=== PATIENT | male | born 1955 | race Caucasian/White ===

== ENCOUNTER → 2024-05-27 | Outpatient (BNVA) | payer OTHER, SELFPAY | END | disposition home or self-care (01) | PROVIDERS: PCP Family Medicine; Referring Provider Family Medicine; Visit Provider Urology | DX: C61 Malignant neoplasm of prostate (principal); Z90.79 Acquired absence of other genital organ(s); I10 Essential (primary) hypertension; Z46.6 Encounter for fitting and adjustment of urinary device; E78.00 Pure hypercholesterolemia, unspecified; K21.9 Gastro-esophageal reflux disease without esophagitis | CPT/HCPCS: 99212; G0463 ==

== ENCOUNTER → 2024-05-27 | Outpatient (CLI) | payer OTHER, SELFPAY ==
--- NOTE | 2024-05-27 09:51 | XR_ITS ---
Examination: Cystogram with KUB Fluoroscopy 8 spot fluoroscopic films of the bladder Fluoroscopy AP, MARTINEZ, ALBANIAN, crosstable lateral, post void AP film of the pelvis obtained Exam date and time: May 27, 2024 1019 hours INDICATIONS: Status post prostatectomy for malignant neoplasm prostate one week ago TECHNIQUE AND FINDINGS: Bladder filled with 150 cc Cystografin Bladder trabeculation Bladder is intact No ureteral reflux Fluoroscopy 30 seconds 8 spot fluoroscopic films of the pelvis IMPRESSION: Intact urinary bladder
== END | disposition home or self-care (01) ==
LOC: SDIM 09:47
PROVIDERS: PCP Family Medicine; Referring Provider Urology; Visit Provider Urology
DX: C61 Malignant neoplasm of prostate (principal)
CPT/HCPCS: 51600; 74430; Q9958

== ENCOUNTER 2024-07-01 10:09 | Inpatient (IN) | payer OTHER, MEDICARE, SELFPAY ==
[2024-07-01] VITALS (8 sets, daily range): BP systolic 103–114; BP diastolic 62–68; PULSE 78–98; RESP 16–22; TEMP 36.4–37.1; O2SAT 93–99; BMI 24.3; BMI 24.0
--- NOTE | 2024-07-01 10:51 | XR_ITS ---
Examination: Abdominal series 3 views including AP upright chest Technique one AP portable upright chest AP upright AP supine abdomen total 3 views Exam date and time: July 01, 2024 1102 hours INDICATIONS: Abdominal pain and vomiting beginning 3 days ago. FINDINGS: Normal heart size Lungs are clear. Mild air and stool throughout the colon Tiny central air distended loops of small bowel No free air Moderate osteopenia IMPRESSION: Nonobstructive bowel gas pattern Mild small bowel ileus
[2024-07-01] MEDS: SODIUM CHLORIDE 0.9% 1000 ML 1,000 ML 999 ML IV ×2 (11:01→13:45)
[2024-07-01 11:14] LABS: Lactate (Lactic Acid) 3.2 mMol/L (0.4-2.0)
[2024-07-01 11:16] LABS: Basophils % (Auto) 0 % (0-2.5); Eosinophils % (Auto) 0 % (0-10); Hematocrit 31.9 % (41.0-53.0); Immature Granulocytes % (Auto) 2 % (0-0); Immature Granulocytes Auto 0.21 Thou/mm3 (0.00-0.00); Lymphocytes # (Auto) 0.5 Thou/mm3 (1.0-4.8); Lymphocytes % (Auto) 4 % (10-50); Mean Corpuscular HGB Conc 34.5 g/dl (31.0-37.0); Mean Corpuscular Hemoglobin 30.6 pg (25.0-35.0); Mean Corpuscular Volume 89 fL (80-100); Monocytes # (Auto) 0.7 Thou/mm3 (0.0-0.8); Monocytes % (Auto) 6 % (0-12); Neutrophils # (Auto) 11.5 Thou/mm3 (1.8-7.7); Neutrophils % (Auto) 88 % (37-80); Nucleated Red Blood Cell % 0 /100 WBC (0); Platelet Count 232 Thou/mm3 (140-440); RDW Standard Deviation 42.4 fL (35.1-43.9); Red Blood Count 3.59 Miln/mm3 (4.50-5.90)
[2024-07-01 11:31] LABS: INR 1.1 (0.9-1.3); Partial Thromboplastin Time 36.3 Seconds (22.0-36.0); Prothrombin Time 12.3 Seconds (9.0-12.2)
--- NOTE | 2024-07-01 11:37 | EDNOTE_ITS ---
ED General RME/HPI General Chief complaint: Flu Like Symptoms Stated complaint: DIARRHEA, BODYACHES, BACK PAIN Time Seen by Provider: 07/01/24 10:20 Arrival date/time: 07/01/24 10:09 RME / HPI RME / HPI narrative: 68 year old male with history of prostate CA, s/p robotic-assisted radical prostatectomy at [facility] on 05/20/2024, hypertension, presents to the ED for evaluation of generalized weakness beginning 3 days ago. Accompanied by nausea, vomiting, difficulty sleeping, back and right flank pain. Unable to tolerate anything by mouth. Reportedly consulted with PCP yesterday who prescribed medications to help him sleep. States he took a pill last night without any improvement. This morning noted to feel significantly weaker, prompting ED visit. Daughter additionally reports while in the ED the patient had a blank stare and body was stiff. States he has had history of similar blank stare and body stiffness in the past during his 's . No known history of seizures. Denies fevers, chills, chest pain, cough, shortness of breath, or urinary symptoms. Related Data Home Medications ?Medication ?Instructions ?Recorded ?Confirmed omeprazole 40 mg capsule,delayed 40 mg PO QDAY 10/07/17 05/27/24 release simvastatin 20 mg tablet 20 mg PO QAM 10/07/17 05/27/24 losartan 25 mg tablet 25 mg PO QDAY 11/15/23 05/27/24 tamsulosin 0.4 mg capsule 0.4 mg PO QHS 12/04/23 05/27/24 Allergies Allergy/AdvReac Type Severity Reaction Status Date / Time No Known Allergies Allergy Verified 07/01/24 10:11 Review of Systems Review of Systems Narrative Review of Systems: GEN: No fever, no chills, no weight loss EYES: No discharge, no visual changes, no pain HEENT: No ear pain, no congestion, no sore throat PULM: No shortness of breath, no cough, no congestion CV: No chest pain, no palpitations GI: +nausea, +vomiting, +diarrhea, no pain, no constipation : No frequency, no urgency, no dysuria MUSC/SKEL: No joint pain, no back pain SKIN: No rash NEURO: No weakness, no headache Past Medical History Past Medical History CARDIAC: Positive Cardiac Disorders, Hypercholesterolemia and Hypertension GASTROINTESTINAL: Positive Gastrointestinal Disorders (occational heart burn) and Gastroesophageal Reflux Disease GENITOURINARY: Positive Genitourinary Disorders, Prostate Cancer and Benign Prostatic Hyperplasia MUSCULOSKELETAL: Positive Musculoskeletal Disorders OTHER HISTORY: Positive Falls (this admission), Cancer and Prostate Cancer Social History SMOKING STATUS: Never smoker SECOND HAND EXPOSURE: No ED Exam Narrative Physical exam: GENERAL APPEARANCE: alert and oriented x 4, well-developed, well-nourished, mild pallor, mild diaphoresis HEENT: Normocephalic, atraumatic; pupils equal, round, reactive to light; EOMI; mucous membranes pink, moist; oropharynx clear NECK: Supple LUNGS: CTABL; no wheezes, no rales, no rhonchi HEART: Regular rate, regular rhythm; normal S1, S2; no murmurs ABDOMEN: well healing surgical scars noted; mildly distended; normal BS; soft, no tenderness, no guarding, no rebound; no masses, no organomegaly, no hernia BACK: no CVA tenderness EXTREMITIES: atraumatic; no edema NEUROLOGIC: awake; alert and oriented x4; cranial nerves II-XII grossly intact; no focal sensory or motor deficits PSYCHIATRIC: appropriate mood and affect SKIN: warm, mild diaphoresis; pallor; no rashes Course Quality Measures Current suspected stage: sepsis Possible source: GI tract/intra-abdominal Blood cultures ordered: completed in ED Antibiotic ordered: Yes Pertinent labs: 07/01/24 07/01/24 10:50 14:26 Lactic Acid 3.2 H mMol/L 0.8 mMol/L (0.4-2.0) (0.4-2.0) Procalcitonin > 50.00 H ng/ml (0.0-0.49) sepsis Orders Category Date Time Status Admit to Inpatient Status Routine Admission 07/01/24 14:55 Active Patient Condition Routine Admission 07/01/24 14:56 Ordered Bee Farmer NOW Care 07/01/24 10:52 Active EKG (ED ONLY) *Do not use* NOW Care 07/01/24 10:52 Completed Flu & Pneumonia Vaccine Screen ONCE Care 07/01/24 14:56 Active Notify provider NEEDED Care 07/01/24 14:[address] abdomen pelvis wo con Stat Exams 07/01/24 12:39 Completed EKG (ED Only) Stat Exams 07/01/24 10:52 Ordered XR abdomen series w chest 1V Stat Exams 07/01/24 10:51 Completed B-Type Natriuretic Peptide Stat Lab 07/01/24 10:50 Completed Blood Culture (Lab) Stat Lab 07/01/24 11:18 Received CBC AM DRAW Lab 07/02/24 05:00 Ordered CBC AM DRAW Lab 07/03/24 05:00 Ordered CBC AM DRAW Lab 07/04/24 05:00 Ordered CBC AM DRAW Lab 07/05/24 05:00 Ordered CBC AM DRAW Lab 07/06/24 05:00 Ordered CBC Stat Lab 07/01/24 10:50 Completed Comprehensive Metabolic Panel AM DRAW Lab 07/02/24 05:00 Ordered Comprehensive Metabolic Panel AM DRAW Lab 07/03/24 05:00 Ordered Comprehensive Metabolic Panel AM DRAW Lab 07/04/24 05:00 Ordered Comprehensive Metabolic Panel AM DRAW Lab 07/05/24 05:00 Ordered Comprehensive Metabolic Panel AM DRAW Lab 07/06/24 05:00 Ordered Comprehensive Metabolic Panel Stat Lab 07/01/24 10:50 Completed Lactate (Lactic Acid) Stat Lab 07/01/24 10:50 Completed Lactic Acid, 3 HR Stat Lab 07/01/24 14:26 Completed Lipase Stat Lab 07/01/24 10:50 Completed Lipid Panel AM DRAW Lab 07/02/24 05:00 Ordered Magnesium AM DRAW Lab 07/02/24 05:00 Ordered Magnesium AM DRAW Lab 07/03/24 05:00 Ordered Magnesium AM DRAW Lab 07/04/24 05:00 Ordered Magnesium AM DRAW Lab 07/05/24 05:00 Ordered Magnesium AM DRAW Lab 07/06/24 05:00 Ordered Magnesium Stat Lab 07/01/24 10:50 Completed Partial Thromboplastin Time Stat Lab 07/01/24 10:50 Completed Phosphorous AM DRAW Lab 07/02/24 05:00 Ordered Phosphorous AM DRAW Lab 07/03/24 05:00 Ordered Phosphorous AM DRAW Lab 07/04/24 05:00 Ordered Phosphorous AM DRAW Lab 07/05/24 05:00 Ordered Phosphorous AM DRAW Lab 07/06/24 05:00 Ordered Procalcitonin Stat Lab 07/01/24 10:50 Completed Prothrombin Time with INR Stat Lab 07/01/24 10:50 Completed Thyroid Stimulating Hormone AM DRAW Lab 07/02/24 05:00 Ordered Troponin I Stat Lab 07/01/24 10:50 Completed Urinalysis Stat Lab 07/01/24 13:20 Completed Urine Culture Stat Lab 07/01/24 13:20 Received Acetaminophen Tab [Tylenol Tab] Med 07/01/24 14:55 Active 650 mg PO Q6H PRN Acetaminophen Tab [Tylenol Tab] Med 07/01/24 14:55 Active 650 mg PO Q6H PRN Docusate Sod [Colace] Med 07/02/24 09:00 Ordered 100 mg PO QDAY Heparin Inj Med 07/01/24 22:00 Active 5,000 unit SC Q8HR Ondansetron Inj [Zofran Inj] Med 07/01/24 14:55 Active 4 mg IV Q6H PRN POTASSIUM CHL 10 mEq IVPB [Kcl Ivpb] Med 07/01/24 12:07 Active 10 meq in 100 ml IV Q1H Piper/Tazo 2.25 gm [Zosyn] Med 07/01/24 12:32 Discontinued 2.25 gm in 50 ml IV X1 Sodium Chloride 0.9% 1000 ml [Ns] 1,000 ml Med 07/01/24 10:51 Discontinued IV 999 mls/hr Sodium Chloride 0.9% 1000 ml [Ns] 1,000 ml Med 07/01/24 12:31 Discontinued IV 999 mls/hr Code Status Routine Oth 07/01/24 14:55 Ordered Vital Signs Vital signs: Vital Signs Temperature 98.3 F 07/01/24 10:50 Pulse Rate 92 07/01/24 10:50 Respiratory Rate 19 07/01/24 10:50 Blood Pressure 108/67 07/01/24 10:50 Pulse Oximetry (%) 97 07/01/24 10:50 Oxygen Delivery Method Room Air 07/01/24 10:50 Pulse ox is 97% on room air which is adequate. [facility] Patient data External records reviewed:: [facility] previous records (I reviewed outpatient urology note on 05/30/2024 ) Clinical information provided by:: patient and family (Daughter- adds to hpi) Social determinants that could affect healthcare access:: none Patient has the following chronic illnesses:: prostate CA, s/p robotic-assisted radical prostatectomy at [facility] on 05/20/2024, hypertension, How is presenting disease/condition affected by chronic disease/condition?: e xacerbated by Evaluation data The following diagnostics were reviewed and interpreted by me:: lab results, radiology exam(s) and EKG tracing(s) (Sinus rhythm, rate 91, mild IVCD, no acute ischemic changes. ) Lab and/or radiology exams considered but not ordered:: None Interpretation Summary: Ordering Physician: Isha Pratt MD Date of Service: 07/01/24 Procedure(s): XR abdomen series w chest 1V Accession Number(s): [id number] cc: Abram Tyson MD; Bernadette Montgomery MD; Isha Pratt MD~ Examination: Abdominal series 3 views including AP upright chest Technique one AP portable upright chest AP upright AP supine abdomen total 3 views Exam date and time: July 01, 2024 1102 hours INDICATIONS: Abdominal pain and vomiting beginning 3 days ago. FINDINGS: Normal heart size Lungs are clear. Mild air and stool throughout the colon Tiny central air distended loops of small bowel No free air Moderate osteopenia IMPRESSION: Nonobstructive bowel gas pattern Mild small bowel ileus Dictated By: Abram Tyson MD Signed By: <Electronically signed by Abram Tyson MD in OV> 07/01/24 1128 Ordering Physician: Isha Pratt MD Date of Service: 07/01/24 Procedure(s): CT abdomen pelvis wo con Accession Number(s): [id number] cc: Abram Tyson MD; Bernadette Montgomery MD; Isha Pratt MD~ Examination: CT abdomen and pelvis without contrast. Coronal 3-D reconstructions. Sagittal 2-D reconstructions. Date and time of exam:July 01, 2024 1250 hours Comparison September 06, 2023 INDICATIONS: Onset generalized abdominal pain nausea vomiting today CTDI: vol (mGy): 7.63 DLP: (mGycm): 501 Technique: Axial images of the abdomen have been obtained, 3 mm slice thickness Intravenous contrast material has not been administered. Low dose protocols were performed. One or more of the following dose reduction techniques were used; automated exposure control, adjustment of the mA and/or KV according to patient size, use of iterative reconstruction technique. Findings: Mild enlargement cardiac contour 2 mm pulmonary nodule right middle lobe No visualized liver or splenic lesion Contracted gallbladder no gallstones No pancreatic mass Stable large right parapelvic renal cyst, 13 cm versus congenital ureteropelvic junction obstruction No ureteral calculi Right perinephric stranding Normal appendix No bowel obstruction Left pelvic 7 cm cystic mass No diverticulitis No significant prostate tissue Contracted urinary bladder Grade 1 spondylolisthesis L5 on S1 with advanced degenerative disc disease this level IMPRESSION: Large right parapelvic cyst, 13 cm versus congenital ureteropelvic junction obstruction Follow-up nuclear medicine renogram with Lasix would confirm congenital ureteropelvic junction obstruction, clinical correlation advised Dictated By: Abram Tyson MD Signed By: <Electronically signed by Abram Tyson MD in OV> 07/01/24 1328 Medications Medications considered but not ordered:: None Medication administrations:: Medication Administration History Acetaminophen (Acetaminophen 325 Mg Tablet) 650 mg PO Q6H PRN PRN Reason: Fever >100.5 Stop: 07/31/24 14:54 Acetaminophen (Acetaminophen 325 Mg Tablet) 650 mg PO Q6H PRN PRN Reason: PAIN SCALE 1-3 (mild Stop: 07/31/24 14:54 Docusate Sodium (Docusate Sod 100 Mg Capsule) 100 mg PO QDAY [facility]; Protocol Stop: 08/01/24 08:59 Heparin Sodium (Porcine) (Heparin Sod Inj 5000 Unit/Ml Vial) 5,000 unit SC Q8HR [facility] Stop: 07/15/24 21:59 Potassium Chloride (Kcl Ivpb) 10 meq in 100 mls @ 100 mls/hr IV Q1H [facility] Stop: 07/01/24 16:06 Last Admin: 07/01/24 13:41 Dose: 100 mls/hr Documented By: Infusion: 07/01/24 13:41 Dose: Infused Documented By: Admin: 07/01/24 12:24 Dose: 100 mls/hr Documented By: MARYAN Ondansetron HCl (Ondansetron Inj 2 Mg/Ml Inj 2 Ml) 4 mg IV Q6H PRN; Protocol PRN Reason: NAUSEA OR VOMITING Stop: 07/31/24 14:54 Discontinued Medications Sodium Chloride (Ns) 1,000 mls @ 999 mls/hr IV .Q1H1M ONE Stop: 07/01/24 11:51 Last Infusion: 07/01/24 12:27 Dose: Infused Documented By: Admin: 07/01/24 11:01 Dose: 999 mls/hr Documented By: MOLINA Sodium Chloride (Ns) 1,000 mls @ 999 mls/hr IV .Q1H1M ONE Stop: 07/01/24 13:31 Last Infusion: 07/01/24 14:37 Dose: Infused Documented By: Admin: 07/01/24 13:45 Dose: 999 mls/hr Documented By: DB Piperacillin/Tazobactam/Dextrose (Zosyn) 2.25 gm in 50 mls @ 100 mls/hr IV X1 ONE Stop: 07/01/24 13:01 Last Infusion: 07/01/24 14:37 Dose: Infused Documented By: Admin: 07/01/24 13:46 Dose: 100 mls/hr Documented By: MARYAN See above Consultations Consultation(s) initiated? (list below): Yes Consultation #1 (Physician, Specialty, Details): I spoke with resident Dr. Bahena working with Dr. Weiner. Discussed patients PMHx, HPI, ED course, exam findings, labs, and radiology results. The hospitalist agree to accept the patient for admission. Diagnosis Differential Diagnosis ED Complaint MDM: Gastroenteritis, viral illness, sepsis, UTI, pneumonia Most likely diagnosis given after review of the tests above:: Dehydration KEELEY Hypokalemia Admission Indicated Admission indicated?: indicated Explain why admission is indicated or not indicated:: Further evaluation and treatment of right flank pain Admission Request Was there a request for admission?: Yes Admission Attestation Admission request attestation: Discussed case with [] from Hospitalist service regarding admission. Discussed patients ED course, exam findings, labs, and radiology results. The Hospitalist [agrees,declines] to accept the patient for admission. Disposition Plan Disposition Plan: Admit Medical Decision Making Differential Diagnosis Differential Diagnosis: Gastroenteritis, viral illness, sepsis, UTI, pneumonia Lab Data 07/01/24 10:50 07/01/24 10:50 Labs: Lab Results 07/01/24 07/01/24 07/01/24 Range/Units 10:50 13:20 14:26 WBC 13.0 H (3.8-10.6) Thou/mm3 RBC 3.59 L (4.50-5.90) Miln/mm3 Hgb 11.0 L (13.5-16.0) g/dL Hct 31.9 L (41.0-53.0) % MCV 89 (80-100) fL MCH 30.6 (25.0-35.0) pg MCHC 34.5 (31.0-37.0) g/dl RDW Std Deviation 42.4 (35.1-43.9) fL Plt Count 232 (140-440) Thou/mm3 Neut % (Auto) 88 H (37-80) % Lymph % (Auto) 4 L (10-50) % Crockett % (Auto) 6 (0-12) % Eos % (Auto) 0 (0-10) % Baso % (Auto) 0 (0-2.5) % Neut # (Auto) 11.5 H (1.8-7.7) Thou/mm3 Lymph # (Auto) 0.5 L (1.0-4.8) Thou/mm3 Crockett # (Auto) 0.7 (0.0-0.8) Thou/mm3 Eos # (Auto) 0.0 (0.0-0.5) Thou/mm3 Baso # (Auto) 0.0 (0.0-0.2) Thou/mm3 Immature Gran # (Auto) 0.21 H (0.00-0.00) Thou/mm3 Absolute Nucleated RBC 0.00 (0.00-0.00) Thou/mm3 Immature Gran % 2 H (0-0) % Nucleated RBC % 0 (0) /100 WBC PT 12.3 H (9.0-12.2) Seconds INR 1.1 (0.9-1.3) APTT 36.3 H (22.0-36.0) Seconds Sodium 134 L (136-145) mMol/L Potassium 2.9 L (3.4-5.1) mMol/L Chloride 98 (98-107) mMol/L Carbon Dioxide 20.0 (20.0-31.0) mMol/L Anion Gap 16 (7-16) BUN 57 H (9-23) mg/dL Creatinine 4.5 H* (0.6-1.3) mg/dL Estim Creat Clear Calc 16.7 L (>60) mL/min eGFR 14 L* (60 - ) See Note BUN/Creatinine Ratio 13 (12-20) Ratio Glucose 150 H (74-106) mg/dL Calculated Osmolality 287 (275-295) Lactic Acid 3.2 H 0.8 (0.4-2.0) mMol/L Calcium 9.0 (8.3-10.6) mg/dL Corrected Calcium 9.0 (8.5-10.1) mg/dL Magnesium 1.8 (1.6-2.6) mg/dL Total Bilirubin 0.5 (0.3-1.2) mg/dL AST 20 (0-34) U/L ALT 21 (10-49) U/L Alkaline Phosphatase 99 (46-116) U/L Troponin I 0.058 H* (0.0-0.045) ng/mL B-Natriuretic Peptide 26 (0-100) pg/mL Total Protein 7.1 (5.7-8.2) gm/dL Albumin 4.2 (3.4-4.8) gm/dL Globulin 2.9 (2.3-3.5) gm/dL Albumin/Globulin Ratio 1.4 (1.2-2.2) Lipase 40 (12-53) U/L Procalcitonin > 50.00 H (0.0-0.49) ng/ml Ur Collection Type Clean Catch Urine Color Yellow (Lt Yel-Yel) Urine Clarity Cloudy A (Clear/Hazy) Urine pH 6.0 (5.0-7.0) Ur Specific Calhoun 1.021 (1.001-1.035) Urine Protein 3+ A (Neg - Trace) Urine Glucose (UA) Trace (Negative) Urine Ketones Negative (Negative) Urine Blood 2+ A (Negative) Urine Nitrite Negative (Negative) Urine Bilirubin Negative (Negative) Urine Urobilinogen (Auto) Negative (0.0-1.0) mg/dL Ur Leukocyte Esterase Positive (Negative) Urine RBC 47 H (0-3) /hpf Urine WBC 1346 H (0-5) /hpf Ur Squamous Epith Cells 2 (0-5) /hpf Amorphous Crystals Present A (Absent) Urine Bacteria 1+ A (None) Critical Care Time Critical Care Time Critical Care Time: Yes Total Critical Care Time (min.): 30 Attestation: The high probability of sudden, clinically significant deterioration in the patient's condition required the highest level of my preparedness to intervene urgently. The services I provided to this patient were to treat and/or prevent clinically significant deterioration. Services included the following: chart data review, reviewing nursing notes and/or old charts, documentation time, architecture consultant collaboration regarding findings and treatment options, medication orders and management, direct patient care, vital sign assessments and ordering, interpreting and reviewing diagnostic studies and lab tests. Aggregate critical care time includes only time during which I was engaged in work directly related to the patient's care, as described above, whether at bedside or elsewhere in the Emergency Department. It did not include time spent performing other reported procedures or the services of residents, students, nurses or physician assistants. Discharge Plan Plan Patient Disposition: Admit Acute Care w/in Hospital Disposition Comment: Dr. Weiner Prescriptions/Referrals Prescriptions/Med Rec: No Action losartan 25 mg tablet 25 mg PO QDAY tamsulosin 0.4 mg capsule 0.4 mg PO QHS omeprazole 40 mg Capsule,Delayed Release(Dr/Ec) 40 mg PO QDAY simvastatin 20 mg Tablet 20 mg PO QAM Referrals: Bernadette Sierra MD [Primary Care Provider] - In 1 week Problem List Clinical Impression: Dehydration, KEELEY (acute kidney injury), Hypokalemia Patient/Caregiver Discharge Instructions Print Language: Cuban Stand Alone Forms: Tarah Award Info., Patient Portal Info Letter
[2024-07-01 11:50] LABS: Alanine Aminotransferase 21 U/L (10-49); Albumin, Serum 4.2 gm/dL (3.4-4.8); Albumin/Globulin Ratio 1.4 (1.2-2.2); Alkaline Phosphatase 99 U/L (46-116); Anion Gap 16 (7-16); Aspartate Amino Transferase 20 U/L (0-34); BUN/Creatinine Ratio 13 Ratio (12-20); Bilirubin,Total 0.5 mg/dL (0.3-1.2); Blood Urea Nitrogen 57 mg/dL (9-23); Chloride 98 mMol/L (98-107); Creatinine (Component) 4.5 mg/dL (0.6-1.3); Estimated Creatinine Clearance 16.7 mL/min (>60); Globulin 2.9 gm/dL (2.3-3.5); Glucose 150 mg/dL (74-106); Lipase 40 U/L (12-53); Magnesium 1.8 mg/dL (1.6-2.6); Osmolality,Calculated 287 (275-295); Potassium 2.9 mMol/L (3.4-5.1); Procalcitonin > 50.00 ng/ml (0.0-0.49); Sodium 134 mMol/L (136-145); Total Protein 7.1 gm/dL (5.7-8.2); eGFR 14 See Note
[2024-07-01 11:57] LABS: Troponin I 0.058 ng/mL (0.0-0.045)
[2024-07-01 12:07] LABS: B-Type Natriuretic Peptide 26 pg/mL (0-100)
[2024-07-01] MEDS: POTASSIUM CHL 10 mEq IVPB 10 MEQ/100 ML BAG 100 MEQ IV ×4 (12:24→16:27)
--- NOTE | 2024-07-01 12:39 | XR_ITS ---
Examination: CT abdomen and pelvis without contrast. Coronal 3-D reconstructions. Sagittal 2-D reconstructions. Date and time of exam:July 01, 2024 1250 hours Comparison September 06, 2023 INDICATIONS: Onset generalized abdominal pain nausea vomiting today CTDI: vol (mGy): 7.63 DLP: (mGycm): 501 Technique: Axial images of the abdomen have been obtained, 3 mm slice thickness Intravenous contrast material has not been administered. Low dose protocols were performed. One or more of the following dose reduction techniques were used; automated exposure control, adjustment of the mA and/or KV according to patient size, use of iterative reconstruction technique. Findings: Mild enlargement cardiac contour 2 mm pulmonary nodule right middle lobe No visualized liver or splenic lesion Contracted gallbladder no gallstones No pancreatic mass Stable large right parapelvic renal cyst, 13 cm versus congenital ureteropelvic junction obstruction No ureteral calculi Right perinephric stranding Normal appendix No bowel obstruction Left pelvic 7 cm cystic mass No diverticulitis No significant prostate tissue Contracted urinary bladder Grade 1 spondylolisthesis L5 on S1 with advanced degenerative disc disease this level IMPRESSION: Large right parapelvic cyst, 13 cm versus congenital ureteropelvic junction obstruction Follow-up nuclear medicine renogram with Lasix would confirm congenital ureteropelvic junction obstruction, clinical correlation advised
[2024-07-01 13:29] LABS: Collection Type, Urine Clean Catch
[2024-07-01] MEDS: PIPER/TAZO 2.25 GM 2.25 GM/50 ML BAG IV (13:46)
[2024-07-01 13:50] LABS: Amorphous Crystals,Urine Present (Absent); Bacteria,Urine 1+; Bilirubin,Urine Negative (Negative); Blood,Urine 2+ (Negative); Color,Urine Yellow (Lt Yel-Yel); Glucose, Urine Trace (Negative); Ketones,Urine Negative (Negative); Leukocyte Esterase,Urine Positive (Negative); Nitrite,Urine Negative (Negative); Protein,Urine 3+ (Neg - Trace); RBC,Urine 47 /hpf (0-3); Specific Gravity,Urine 1.021 (1.001-1.035); Squamous Epithelial Cell,Urine 2 /hpf (0-5); Urobilinogen,Urine Negative mg/dL (0.0-1.0); WBC,Urine 1346 /hpf (0-5)
[2024-07-01 13:53] LABS: Clarity,Urine Cloudy (Clear/Hazy)
[2024-07-01 14:12] LABS: Reflex Lactate? Y
[2024-07-01 14:31] LABS: Lactic Acid, 3 HR 0.8 mMol/L (0.4-2.0)
--- NOTE | 2024-07-01 15:18 | PD.RESHP ---
Documentation for date of: 07/01/24 Senior resident attestation: Patient evaluated and examined at the bedside, plan of care discussed with rest of the team including my attending physician, except as noted. 68-year-old male with past medical history of prostate CA, s/p robotic-assisted radical prostatectomy at [facility] on 05/20/2024, hypertension, presents to the ED for evaluation of generalized weakness beginning 3 days ago. Patient states having nonbloody watery diarrhea for the past few days. Patient also states having nausea and vomiting as well as right flank pain and decreased p.o. intake. Patient denies any sick contacts at this time. Denies fever, chills, chest pain, shortness of breath, abdominal pain. Patient will be admitted for acute gastroenteritis and KEELEY. #Acute pyelonephritis Right perinephric stranding on the CT as well as positive urinalysis, we will continue IV antibiotics, also has history of recent prostate surgery. ? IV Zosyn renally dosed 2.25 every 12 hours ? Follow urine and blood cultures #KEELEY? prerenal versus postrenal In the setting of dehydration and acute gastroenteritis, as well as patient has a large renal pelvic cyst, which has been there for quite some time, per patient he is aware of the cyst/mass and has seen urology in the past, less likely cause of post renal KEELEY, also patient has history of prostate carcinoma and got recent prostate surgery with robotic prostatectomy, CT shows nondistended urinary bladder. Less impressed with postrenal obstructive uropathy, more likely prerenal versus intrinsic renal given acute pyonephritis. ? Will continue with IV fluids and antibiotics for infection. ? Nephrology consult will be placed, appreciate recommendations Quresh PGY2 HPI History of Present Illness Chief complaint: Diarrhea History of present illness: 68-year-old male with past medical history of prostate CA, s/p robotic-assisted radical prostatectomy at [facility] on 05/20/2024, hypertension, presents to the ED for evaluation of generalized weakness beginning 3 days ago. Patient states having nonbloody watery diarrhea for the past few days. Patient also states having nausea and vomiting as well as right flank pain and decreased p.o. intake. Patient denies any sick contacts at this time. Denies fever, chills, chest pain, shortness of breath, abdominal pain. Patient will be admitted for acute gastroenteritis and KEELEY. ED course: Vitals on admission unremarkable, labs significant for leukocytosis, hemoglobin 11, CHEM panel significant for potassium 2.9, BUN 57, creatinine 4.5, glucose 150. CT abdomen pelvis was done showed Large right parapelvic cyst, 13 cm versus congenital ureteropelvic junction obstruction. Follow-up nuclear medicine renogram with Lasix would confirm congenital. ureteropelvic junction obstruction, clinical correlation advised in the ED patient received 2.5 L of NS, potassium chloride, Zosyn PMHx: Prostate cancer, hypertension SxHx: Prostatectomy Social Hx: Denies alcohol, denies tobacco, denies illicit substances including THC FHx: Unknown Review of Systems Review of Systems Narrative Review of Systems: Narrative ROS GENERAL: Denies fevers/chills or diaphoresis. HEENT: Denies headache or visual/hearing changes. Denies nasal discharge. NEURO: Denies unusual weakness or difficulty speaking. CARDIO: Denies chest pain or palpitations. PULM: Denies SOB, coughing, or wheezing. GI: Positive diarrhea vomiting, denies bright red blood per rectum or melena. Reports having BMs. URO: Denies burning/itching/pain/urinary changes. MSK/EXT/SKIN: Denies joint/skeletal/muscle pain, issues/changes in upper or lower extremities, itchiness, or superficial pain. PSYCH: Cooperative, pleasant mood & affect. The rest of the review of systems is otherwise negative. Exam Vital Signs Temp Pulse Resp BP Pulse Ox O2 Del Method 97.7 F 81 16 114/62 96 Room Air 07/01/24 14:30 07/01/24 14:29 07/01/24 14:29 07/01/24 14:29 07/01/24 14:29 07/01/24 14:29 Narrative Exam Physical Exam GENERAL: NAD, AAOx3 HEENT: Moist mucosa. Eyes open, symmetrical, & clear CARDIO: Heart RRR, no obvious murmurs PULM: No noted coughing/dyspnea CTA B/L, no R/W/R GI: Abdomen soft, nondistended, no pain on palpation. BSx4 SKIN/MSK/EXT: No wounds/rashes/edema/amputations, no pain on palpation. Right flank pain pedal pulses present B/L NEURO: AAOx3, no focal neuro deficits, able to move all 4 extremities Results: Labs 07/02/24 05:53 07/02/24 05:53 Labs: Short CBC 07/01/24 Range/Units 10:50 WBC 13.0 H (3.8-10.6) Thou/mm3 Hgb 11.0 L (13.5-16.0) g/dL Hct 31.9 L (41.0-53.0) % Plt Count 232 (140-440) Thou/mm3 BMP 07/01/24 10:50 Sodium 134 L Potassium 2.9 L Chloride 98 Carbon Dioxide 20.0 BUN 57 H Creatinine 4.5 H* Glucose 150 H Calcium 9.0 Cardiac Enzymes 07/01/24 Range/Units 10:50 Troponin I 0.058 H* (0.0-0.045) ng/mL Liver Function 07/01/24 Range/Units 10:50 Total Bilirubin 0.5 (0.3-1.2) mg/dL AST 20 (0-34) U/L ALT 21 (10-49) U/L Alkaline Phosphatase 99 (46-116) U/L Albumin 4.2 (3.4-4.8) gm/dL Urine 07/01/24 Range/Units 13:20 Urine Color Yellow (Lt Yel-Yel) Urine Clarity Cloudy A (Clear/Hazy) Urine pH 6.0 (5.0-7.0) Ur Specific [place] 1.021 (1.001-1.035) Urine Protein 3+ A (Neg - Trace) Urine Glucose (UA) Trace (Negative) Quality Measures Quality Measures sepsis Current suspected stage: sepsis Possible source: GI tract/intra-abdominal Blood cultures ordered: completed in ED Antibiotic ordered: Yes Advance care planning discussed with:: patient Medications Home Medications and Allergies Home Medications ?Medication ?Instructions ?Recorded ?Confirmed ?Type omeprazole 40 mg capsule,delayed 40 mg PO QPM 10/07/17 07/01/24 History release simvastatin 20 mg tablet 20 mg PO QPM 10/07/17 07/01/24 History losartan 25 mg tablet 25 mg PO QPM 11/15/23 07/01/24 History hydroxyzine HCl 25 mg tablet 25 mg PO HS 07/01/24 07/01/24 History Allergies Allergy/AdvReac Type Severity Reaction Status Date / Time No Known Allergies Allergy Verified 07/01/24 10:11 Visit Medications Acetaminophen (Acetaminophen 325 Mg Tablet) 650 mg PO Q6H PRN PRN Reason: Fever >100.5 Stop: 07/31/24 14:54 Acetaminophen (Acetaminophen 325 Mg Tablet) 650 mg PO Q6H PRN PRN Reason: PAIN SCALE 1-3 (mild Stop: 07/31/24 14:54 Docusate Sodium (Docusate Sod 100 Mg Capsule) 100 mg PO QDAY SASHA; Protocol Stop: 08/01/24 08:59 Heparin Sodium (Porcine) (Heparin Sod Inj 5000 Unit/Ml Vial) 5,000 unit SC Q8HR SASHA Stop: 07/15/24 21:59 Potassium Chloride (Kcl Ivpb) 10 meq in 100 mls @ 100 mls/hr IV Q1H SASHA Stop: 07/01/24 16:06 Last Admin: 07/01/24 15:09 Dose: 100 mls/hr Ceftriaxone Sodium/Dextrose (Rocephin/D5w 1gm Iv Premix) 50 mls @ 100 mls/hr IV QDAY SASHA Stop: 07/08/24 15:15 Ondansetron HCl (Ondansetron Inj 2 Mg/Ml Inj 2 Ml) 4 mg IV Q6H PRN; Protocol PRN Reason: NAUSEA OR VOMITING Stop: 07/31/24 14:54 Discontinued Medications Sodium Chloride (Ns) 1,000 mls @ 999 mls/hr IV .Q1H1M ONE Stop: 07/01/24 11:51 Last Infusion: 07/01/24 12:27 Dose: Infused Sodium Chloride (Ns) 1,000 mls @ 999 mls/hr IV .Q1H1M ONE Stop: 07/01/24 13:31 Last Infusion: 07/01/24 14:37 Dose: Infused Piperacillin/Tazobactam/Dextrose (Zosyn) 2.25 gm in 50 mls @ 100 mls/hr IV X1 ONE Stop: 07/01/24 13:01 Last Infusion: 07/01/24 14:37 Dose: Infused Assessment & Plan Plan 68-year-old male with past medical history of prostate CA, s/p robotic-assisted radical prostatectomy at [facility] on 05/20/2024, hypertension, presents to the ED for evaluation of generalized weakness beginning 3 days ago. Patient states having nonbloody watery diarrhea for the past few days. Patient also states having nausea and vomiting as well as right flank pain. Admitted for acute gastroenteritis and KEELEY. #Acute gastroenteritis #Pyelonephritis #Sepsis-aborted Patient states having diarrhea for the past 2 days after consuming some suspicious food Patient states having right flank tenderness On med rec patient takes omeprazole On Labs patient has SIRS 2/4 WBCs 13, no fever, no tachycardia, no tachypnea, Lactic acid 3.2, organ dysfunction kidney with KEELEY however repeat lactic acid normalized, procalcitonin >50 currently qSOFA:0, SIRS 1/4, not sepsis UA shows no signs of UTI many WBCs, bacteria CT abdomen pelvis also shows Right perinephric stranding In the ED patient received 2L NS boluses -On IV fluids -on Zosyn -C. difficile ordered -Follow urine culture -follow blood cultures #Acute Kidney Injury likely pre-renal in the setting of decreased po intake and dehydration Creatinine on admission 4.5 Baseline Cr 0.9 -On IV fluids -Renally dose medications -Avoid nephrotoxins -Monitor CMP #Troponinemia Likely in the setting of demand ischemia due to underlying infection EKG ordered however not on file, cannot find Troponins 0.058 -Consider uploading -Follow-up troponins q6 hours #Hypokalemia On admission potassium 2.9 -Replete as necessary -Monitor BMP #Hypertension Patient is normotensive at this time -Consider resuming antihypertensives #Renal cyst, right 13 cm #History of prostate cancer CT abdomen pelvis shows: Large right parapelvic cyst, 13 cm versus congenital ureteropelvic junction obstruction -Outpatient follow-up with Dr. Dexter -Resume Flomax as taken at home Case discussed with my senior Dr. Bahena PGY-[address] Regine Duarte MD PGY-1 Disposition: Medtele Fluids: NS Feeding: Regular Thrombo prophylaxis: Heparin Gastric Ulcer prophylaxis: None CODE STATUS: Full code Attending Provider Attestation/Addendum I reviewed labs, imaging, EKG, home medications and prior available records. Face to face evaluation was performed by me. I have personally examined the patient and discussed assessment and plan with the IM team. I reviewed the resident note and agree with the plan with exceptions as below. See my addendum on 07/01
--- NOTE | 2024-07-01 15:19 | PD.ADDHP ---
Addendum History & Physical Addendum Date of report being addended: 07/01/24 Narrative: Attending's attestation: I reviewed labs, imaging, EKG, home medications and prior available records. Face to face evaluation was performed by me. I have personally examined the patient and discussed assessment and plan with the IM team. I reviewed the resident note and agree with the plan with exceptions as below. KEELEY Acute gastroenteritis Acute UTI Elevated troponin Hypokalemia Renal cyst, right 13 cm History of prostate cancer Plan: IV fluids IV ceftriaxone Send urine culture Monitor kidney function. Avoid nephrotoxins. Renally dose medications Trend troponin Replete potassium and monitor BMP Renal cyst appears to be chronic and patient is aware of that finding. Outpatient follow-up with Dr. Dexter
[2024-07-01] MEDS: cefTRIAXone/D5w 1gm IV premix 50 ML IV (15:33)
[2024-07-01 15:51] LABS: Troponin I 0.046 ng/mL (0.0-0.045)
[2024-07-01] MEDS: TAMSULOSIN HCL 0.4 MG CAPSULE PO (16:30)
[2024-07-01] MEDS: ACETAMINOPHEN 325 MG TABLET 650 MG PO (20:25)
[2024-07-01] MEDS: PIPER/TAZO 3.375 GM 50 ML IV (20:26)
[2024-07-01] MEDS: HEPARIN SOD INJ 5000 UNIT/ML VIAL SC (20:36)
[2024-07-01] MEDS: hydrOXYzine HCL 25 MG TABLET PO (21:49)
[2024-07-01 22:39] LABS: Troponin I 0.048 ng/mL (0.0-0.045)
[2024-07-02] VITALS (7 sets, daily range): BP systolic 96–138; BP diastolic 57–72; PULSE 69–96; RESP 16–18; TEMP 36.1–36.8; O2SAT 91–95; BMI 24.0
[2024-07-02] MEDS: ACETAMINOPHEN 325 MG TABLET 650 MG PO ×3 (03:38→16:27)
[2024-07-02 06:08] LABS: Basophils % (Auto) 0 % (0-2.5); Eosinophils # (Auto) 0.1 Thou/mm3 (0.0-0.5); Eosinophils % (Auto) 1 % (0-10); Hematocrit 26.6 % (41.0-53.0); Hemoglobin 9.3 g/dL (13.5-16.0); Immature Granulocytes % (Auto) 1 % (0-0); Immature Granulocytes Auto 0.07 Thou/mm3 (0.00-0.00); Lymphocytes # (Auto) 0.3 Thou/mm3 (1.0-4.8); Lymphocytes % (Auto) 4 % (10-50); Mean Corpuscular Hemoglobin 30.8 pg (25.0-35.0); Mean Corpuscular Volume 88 fL (80-100); Monocytes # (Auto) 0.9 Thou/mm3 (0.0-0.8); Monocytes % (Auto) 9 % (0-12); Neutrophils # (Auto) 7.7 Thou/mm3 (1.8-7.7); Neutrophils % (Auto) 85 % (37-80); Nucleated Red Blood Cell % 0 /100 WBC (0); Platelet Count 164 Thou/mm3 (140-440); RDW Standard Deviation 41.3 fL (35.1-43.9); Red Blood Count 3.02 Miln/mm3 (4.50-5.90)
[2024-07-02 06:48] LABS: Alanine Aminotransferase 15 U/L (10-49); Albumin, Serum 3.3 gm/dL (3.4-4.8); Albumin/Globulin Ratio 1.4 (1.2-2.2); Alkaline Phosphatase 99 U/L (46-116); Anion Gap 14 (7-16); Aspartate Amino Transferase 15 U/L (0-34); BUN/Creatinine Ratio 14 Ratio (12-20); Bilirubin,Total 0.5 mg/dL (0.3-1.2); Blood Urea Nitrogen 57 mg/dL (9-23); Calcium 8.1 mg/dL (8.3-10.6); Calcium (Corrected) 8.7 mg/dL (8.5-10.1); Carbon Dioxide 17.2 mMol/L (20.0-31.0); Chloride 100 mMol/L (98-107); Cholesterol 121 mg/dL (132-200); Creatinine (Component) 4.2 mg/dL (0.6-1.3); Estimated Creatinine Clearance 17.9 mL/min (>60); Globulin 2.4 gm/dL (2.3-3.5); Glucose 99 mg/dL (74-106); HDL Cholesterol < 10 mg/dL (40-60); LDL Cholesterol,Calculated 50 mg/dL (0-130); Magnesium 1.6 mg/dL (1.6-2.6); Osmolality,Calculated 278 (275-295); Phosphorous 3.2 mg/dL (2.4-5.1); Potassium 2.9 mMol/L (3.4-5.1); Sodium 131 mMol/L (136-145); Thyroid Stimulating Hormone 1.42 uIU/mL (0.55-4.78); Total Protein 5.7 gm/dL (5.7-8.2); Triglycerides 304 mg/dL (30-150); eGFR 15 See Note
[2024-07-02] MEDS: HEPARIN SOD INJ 5000 UNIT/ML VIAL SC ×2 (08:27→21:05)
[2024-07-02] MEDS: TAMSULOSIN HCL 0.4 MG CAPSULE PO (08:28)
[2024-07-02] MEDS: PIPER/TAZO 3.375 GM 50 ML IV ×2 (08:28→21:06)
[2024-07-02] MEDS: POTASSIUM CHLORIDE 20 mEq TABCR 40 MEQ PO (08:28)
[2024-07-02] MEDS: gemfibroziL 600 MG TABLET PO ×2 (08:28→21:05)
[2024-07-02 09:27] LABS: Clostridium Difficile PCR Negative (Negative)
[2024-07-02] MEDS: POTASSIUM CHL 10 mEq IVPB 10 MEQ/100 ML BAG 100 MEQ IV ×4 (10:12→13:49)
--- NOTE | 2024-07-02 11:05 | PD.RESPRO ---
Documentation for date of: 07/02/24 07/01/24 Senior resident attestation: Patient evaluated and examined at the bedside, plan of care discussed with rest of the team including my attending physician, except as noted. 68-year-old male with past medical history of prostate CA, s/p robotic-assisted radical prostatectomy at [facility] on 05/20/2024, hypertension, presents to the ED for evaluation of generalized weakness beginning 3 days ago. Patient states having nonbloody watery diarrhea for the past few days. Patient also states having nausea and vomiting as well as right flank pain and decreased p.o. intake. Patient denies any sick contacts at this time. Denies fever, chills, chest pain, shortness of breath, abdominal pain. Patient will be admitted for acute gastroenteritis and KEELEY. Rapid response overnight, abx changed to Meropenem due to concern for ESBL, will follow final cultures to narrow abx. #Sepsis #GNR Bactremia- #Acute pyelonephritis #KEELEY? prerenal versus postrenal Quresh PGY2 Subjective Subjective Interval history: Patient seen today at the bedside fine awake, alert, oriented x 3. No overnight events reported. States still having episodes of diarrhea and continues to have CVA tenderness. Vital signs stable at this time. Labs significant for improving renal function. Blood cultures grew gram-negative rods in 2 out of 2 bottles. Patient is currently on Zosyn we will continue current antibiotics. C. difficile was ordered came back negative. Exam Vital Signs Temp Pulse Resp BP Pulse Ox O2 Del Method 97.0 F 79 16 115/59 L 95 Room Air 07/02/24 07:56 07/02/24 08:00 07/02/24 07:56 07/02/24 07:56 07/02/24 07:56 07/02/24 07:56 Narrative Exam Physical Exam GENERAL: NAD, AAOx3 HEENT: Moist mucosa. Eyes open, symmetrical, & clear CARDIO: Heart RRR, no obvious murmurs PULM: No noted coughing/dyspnea CTA B/L, no R/W/R GI: Abdomen soft, nondistended, no pain on palpation. BSx4 SKIN/MSK/EXT: No wounds/rashes/edema/amputations, no pain on palpation. Right flank pain pedal pulses present B/L NEURO: AAOx3, no focal neuro deficits, able to move all 4 extremities Objective Labs 07/03/24 04:20 07/03/24 04:20 Labs: Laboratory Results - last 24 hr 07/01/24 07/01/24 07/01/24 10:50 13:20 14:26 WBC 13.0 H RBC 3.59 L Hgb 11.0 L Hct 31.9 L MCV 89 MCH 30.6 MCHC 34.5 RDW Std Deviation 42.4 Plt Count 232 Neut % (Auto) 88 H Lymph % (Auto) 4 L [place] % (Auto) 6 Eos % (Auto) 0 Baso % (Auto) 0 Neut # (Auto) 11.5 H Lymph # (Auto) 0.5 L [place] # (Auto) 0.7 Eos # (Auto) 0.0 Baso # (Auto) 0.0 Immature Gran # (Auto) 0.21 H Absolute Nucleated RBC 0.00 Immature Gran % 2 H Nucleated RBC % 0 PT 12.3 H INR 1.1 APTT 36.3 H Sodium 134 L Potassium 2.9 L Chloride 98 Carbon Dioxide 20.0 Anion Gap 16 BUN 57 H Creatinine 4.5 H* Estim Creat Clear Calc 16.7 L eGFR 14 L* BUN/Creatinine Ratio 13 Glucose 150 H Calculated Osmolality 287 Lactic Acid 3.2 H 0.8 Calcium 9.0 Corrected Calcium 9.0 Phosphorus Magnesium 1.8 Total Bilirubin 0.5 AST 20 ALT 21 Alkaline Phosphatase 99 Troponin I 0.058 H* B-Natriuretic Peptide 26 Total Protein 7.1 Albumin 4.2 Globulin 2.9 Albumin/Globulin Ratio 1.4 Triglycerides Cholesterol LDL Cholesterol, Calc HDL Cholesterol Cholesterol/HDL Ratio Lipase 40 Procalcitonin > 50.00 H TSH Ur Collection Type Clean Catch Urine Color Yellow Urine Clarity Cloudy A Urine pH 6.0 Ur Specific [place] 1.021 Urine Protein 3+ A Urine Glucose (UA) Trace Urine Ketones Negative Urine Blood 2+ A Urine Nitrite Negative Urine Bilirubin Negative Urine Urobilinogen (Auto) Negative Ur Leukocyte Esterase Positive Urine RBC 47 H Urine WBC 1346 H Ur Squamous Epith Cells 2 Amorphous Crystals Present A Urine Bacteria 1+ A Stl C. diff Tox B Gene 07/01/24 07/01/24 07/01/24 15:22 18:40 21:54 WBC RBC Hgb Hct MCV MCH MCHC RDW Std Deviation Plt Count Neut % (Auto) Lymph % (Auto) [place] % (Auto) Eos % (Auto) Baso % (Auto) Neut # (Auto) Lymph # (Auto) [place] # (Auto) Eos # (Auto) Baso # (Auto) Immature Gran # (Auto) Absolute Nucleated RBC Immature Gran % Nucleated RBC % PT INR APTT Sodium Potassium Chloride Carbon Dioxide Anion Gap BUN Creatinine Estim Creat Clear Calc eGFR BUN/Creatinine Ratio Glucose Calculated Osmolality Lactic Acid Calcium Corrected Calcium Phosphorus Magnesium Total Bilirubin AST ALT Alkaline Phosphatase Troponin I 0.046 H* 0.048 H* B-Natriuretic Peptide Total Protein Albumin Globulin Albumin/Globulin Ratio Triglycerides Cholesterol LDL Cholesterol, Calc HDL Cholesterol Cholesterol/HDL Ratio Lipase Procalcitonin TSH Ur Collection Type Urine Color Urine Clarity Urine pH Ur Specific [place] Urine Protein Urine Glucose (UA) Urine Ketones Urine Blood Urine Nitrite Urine Bilirubin Urine Urobilinogen (Auto) Ur Leukocyte Esterase Urine RBC Urine WBC Ur Squamous Epith Cells Amorphous Crystals Urine Bacteria Stl C. diff Tox B Gene Negative 07/02/24 05:53 WBC 9.0 RBC 3.02 L Hgb 9.3 L Hct 26.6 L MCV 88 MCH 30.8 MCHC 35.0 RDW Std Deviation 41.3 Plt Count 164 D Neut % (Auto) 85 H Lymph % (Auto) 4 L [place] % (Auto) 9 Eos % (Auto) 1 Baso % (Auto) 0 Neut # (Auto) 7.7 Lymph # (Auto) 0.3 L [place] # (Auto) 0.9 H Eos # (Auto) 0.1 Baso # (Auto) 0.0 Immature Gran # (Auto) 0.07 H Absolute Nucleated RBC 0.00 Immature Gran % 1 H Nucleated RBC % 0 PT INR APTT Sodium 131 L Potassium 2.9 L Chloride 100 Carbon Dioxide 17.2 L Anion Gap 14 BUN 57 H Creatinine 4.2 H* Estim Creat Clear Calc 17.9 L eGFR 15 L BUN/Creatinine Ratio 14 Glucose 99 D Calculated Osmolality 278 Lactic Acid Calcium 8.1 L Corrected Calcium 8.7 Phosphorus 3.2 Magnesium 1.6 Total Bilirubin 0.5 AST 15 ALT 15 Alkaline Phosphatase 99 Troponin I B-Natriuretic Peptide Total Protein 5.7 Albumin 3.3 L D Globulin 2.4 Albumin/Globulin Ratio 1.4 Triglycerides 304 H Cholesterol 121 L LDL Cholesterol, Calc 50 HDL Cholesterol < 10 L Cholesterol/HDL Ratio 12.0 H Lipase Procalcitonin TSH 1.42 Ur Collection Type Urine Color Urine Clarity Urine pH Ur Specific [place] Urine Protein Urine Glucose (UA) Urine Ketones Urine Blood Urine Nitrite Urine Bilirubin Urine Urobilinogen (Auto) Ur Leukocyte Esterase Urine RBC Urine WBC Ur Squamous Epith Cells Amorphous Crystals Urine Bacteria Stl C. diff Tox B Gene Quality Measures Quality Measures sepsis Current suspected stage: ruled out Possible source: GI tract/intra-abdominal Blood cultures ordered: completed in ED Antibiotic ordered: Yes Advance care planning discussed with:: patient Assessment & Plan Assessment Current Active Medications: Generic Name Dose Route Start Last Admin Trade Name Freq PRN Reason Stop Dose Admin Acetaminophen 650 mg 07/01/24 14:55 Acetaminophen 325 Mg Tablet PO 07/31/24 14:54 Q6H PRN Fever >100.5 Acetaminophen 650 mg 07/01/24 14:55 07/02/24 10:12 Acetaminophen 325 Mg Tablet PO 07/31/24 14:54 650 mg Q6H PRN Administration PAIN SCALE 1-3 (mild Docusate Sodium 100 mg 07/02/24 09:00 07/02/24 08:28 Docusate Sod 100 Mg Capsule PO 08/01/24 08:59 Not Given QDAY [facility] Protocol Gemfibrozil 600 mg 07/02/24 09:00 07/02/24 08:28 Gemfibrozil 600 Mg Tablet PO 08/01/24 08:59 600 mg BID SASHA Administration Heparin Sodium (Porcine) 5,000 unit 07/01/24 21:00 07/02/24 08:27 Heparin Sod Inj 5000 Unit/Ml Vial SC 07/15/24 20:59 5,000 unit Q12HR SASHA Administration Hydroxyzine HCl 25 mg 07/01/24 21:35 07/01/24 21:49 Hydroxyzine Hcl 25 Mg Tablet PO 07/31/24 20:59 25 mg HS SASHA Administration Piperacillin/Tazobactam/Dextrose 50 mls @ 12.5 mls/hr 07/01/24 21:00 07/02/24 08:28 Zosyn IV 07/08/24 20:59 12.5 mls/hr Q12HR SASHA Administration Potassium Chloride 10 meq in 100 mls @ 100 mls/hr 07/02/24 08:15 07/02/24 10:12 Kcl Ivpb IV 07/02/24 12:14 100 mls/hr Q1H SASHA Administration Ondansetron HCl 4 mg 07/01/24 14:55 Ondansetron Inj 2 Mg/Ml Inj 2 Ml IV 07/31/24 14:54 Q6H PRN NAUSEA OR VOMITING Protocol Tamsulosin HCl 0.4 mg 07/01/24 16:00 07/02/24 08:28 Tamsulosin Hcl 0.4 Mg Capsule PO 07/31/24 15:59 0.4 mg QDAY SASHA Administration Plan 68-year-old male with past medical history of prostate CA, s/p robotic-assisted radical prostatectomy at [facility] on 05/20/2024, hypertension, presents to the ED for evaluation of generalized weakness beginning 3 days ago. Patient states having nonbloody watery diarrhea for the past few days. Patient also states having nausea and vomiting as well as right flank pain. Admitted for acute gastroenteritis and KEELEY. #Acute gastroenteritis #Pyelonephritis #Sepsis-aborted #GNR bacteremia Patient states having diarrhea for the past 2 days after consuming some suspicious food Patient states having right flank tenderness On med rec patient takes omeprazole On Labs patient has SIRS 2/4 WBCs 13, no fever, no tachycardia, no tachypnea, Lactic acid 3.2, organ dysfunction kidney with KEELEY however repeat lactic acid normalized, procalcitonin >50 currently qSOFA:0, SIRS 1/4, not sepsis UA shows no signs of UTI many WBCs, bacteria CT abdomen pelvis also shows Right perinephric stranding In the ED patient received 2L NS boluses C. difficile negative Blood cultures grew gram-negative rods 2 out of 2 bottles -on Zosyn #Acute Kidney Injury-improving likely pre-renal in the setting of decreased po intake and dehydration Creatinine on admission 4.5 Baseline Cr 0.9, current creatinine 4.2 -Renally dose medications -Avoid nephrotoxins -Monitor CMP #Troponinemia Likely in the setting of demand ischemia due to underlying infection EKG ordered however not on file, cannot find Troponins 0.058, troponin peaked -No need to trend troponin #Hypokalemia On admission potassium 2.9 -Replete as necessary -Monitor BMP #Hypertension Patient is normotensive at this time -Consider resuming antihypertensives #Renal cyst, right 13 cm #History of prostate cancer CT abdomen pelvis shows: Large right parapelvic cyst, 13 cm versus congenital ureteropelvic junction obstruction -Outpatient follow-up with Dr. Dexter -Resume Flomax as taken at home Case discussed with my senior Dr. Bahena PGY-[address] Mimi Duarte MD PGY-1 Disposition: Medtele Fluids: None Feeding: Regular Thrombo prophylaxis: Heparin Gastric Ulcer prophylaxis: None CODE STATUS: Full code Attending Provider Attestation/Addendum IRose, , attest that I was physically present for the hall portions of the service and evaluated the patient with the resident and I reviewed and discussed the case with the resident and agree with the resident's findings and plans of care as documented above Patient seen and evaluated this a.m. Patient is noted to have a significantly large 13 cm renal cyst on the right kidney that appears to be stable in comparison to previous abdominal CTs. However, patient states that he has never had flank pain until this time. He denies any dysuria. Patient has been requiring pain medication due to his persistent flank pain, but he states that he feels slightly improved today. Will continue to monitor urine output. Pending urine and blood cultures. Will continue with IV Zosyn otherwise.
--- NOTE | 2024-07-02 12:02 | PC.DIETICIAN ---
1. If diarrhea/loose stools persists, pt may benefit from adding Banatrol Plus Banana flakes which contains prebiotic beneficial bacteria, to improve gut microflora. Stir 1 packet into 120ml water or fruit juice or add to applesauce. 2. Continue with current diet, plan is ongoing. RD to remain available as requested or needed
--- NOTE | 2024-07-02 12:05 | PC.SS ---
Follow up note: Pt is on IV antibiotic and IV potassium. Pt will return home upon dc.
--- NOTE | 2024-07-02 12:25 | PC.SS ---
SS met with patient regarding his d/c plan. Pt is alert/oriented. Pt was admitted for Right Flank Pain. Pt confirmed demographic and contact information is correct on facesheet. Pt resides alone. Pt ambulates independently without assistance or DME. Pt is ok with all ADLs. Patient?s pharmacy of choice is [facility] on [address]. Pt named his dtr, Karol Gagnon medical decision maker if he is unable. SS provided verbal choices for d/c to home or SNF. Patient?s choice is to return home upon d/c. Pt does not have an advance directive, SS offered, and pt declined. Pt states not diabetic and is not on dialysis. Pt states he followed up with PCP on Sunday. D/C plan: Return home Next of Kin: Karol Gagnon, phone# [phone] PCP: Dr. Bernadette Sierra Address: Correct on facesheet
[2024-07-02] MEDS: hydrOXYzine HCL 25 MG TABLET PO (21:06)
[2024-07-03] VITALS (12 sets, daily range): BP systolic 98–138; BP diastolic 56–85; PULSE 52–98; RESP 17–20; TEMP 36.3–38.5; O2SAT 96–98
[2024-07-03] MEDS: ACETAMINOPHEN 325 MG TABLET 650 MG PO (00:27)
--- NOTE | 2024-07-03 00:30 | EKG_ITS ---
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
[2024-07-03] MEDS: SODIUM CHLORIDE 0.9% 1000 ML 1,000 ML 999 ML IV (00:45)
[2024-07-03 00:51] LABS: Lactate (Lactic Acid) 2.1 mMol/L (0.4-2.0)
[2024-07-03 00:52] LABS: Basophils % (Auto) 1 % (0-2.5); Eosinophils # (Auto) 0.1 Thou/mm3 (0.0-0.5); Eosinophils % (Auto) 1 % (0-10); Hematocrit 28.3 % (41.0-53.0); Hemoglobin 9.9 g/dL (13.5-16.0); Immature Granulocytes % (Auto) 1 % (0-0); Immature Granulocytes Auto 0.03 Thou/mm3 (0.00-0.00); Lymphocytes # (Auto) 0.5 Thou/mm3 (1.0-4.8); Lymphocytes % (Auto) 12 % (10-50); Mean Corpuscular Hemoglobin 30.7 pg (25.0-35.0); Mean Corpuscular Volume 88 fL (80-100); Monocytes # (Auto) 0.2 Thou/mm3 (0.0-0.8); Monocytes % (Auto) 5 % (0-12); Neutrophils # (Auto) 3.3 Thou/mm3 (1.8-7.7); Neutrophils % (Auto) 81 % (37-80); Nucleated Red Blood Cell % 0 /100 WBC (0); Platelet Count 212 Thou/mm3 (140-440); RDW Standard Deviation 42.9 fL (35.1-43.9); Red Blood Count 3.22 Miln/mm3 (4.50-5.90)
--- NOTE | 2024-07-03 00:57 | PD.RESEVENT ---
Documentation for date of: 07/03/24 Event Note Event Note: Rapid Response - Sepsis Alert Room: 357 Time: 00:20 Reason for Call: Fever 101.3, tachycardia 168 Patient presentation: Patient had full body shivering, under many blankets despite fever. Denied any pain, shortness of breath, nausea at this time. Patient awake and conversational. Vitals included HR 150-160s, BP 138/85, RR 17, O2 95% on room air. Extremities warm, capillary refill <2. Events: Sepsis alert called at 00:26. Patient given acetaminophen 650 mg x1, 1L NS bolus, started on meropenem, and new blood cultures drawn. Sepsis labs ordered. Assessment: Sepsis secondary to pyelonephritis. Patient is appearing septic, fever is new. Patient already receiving Zosyn, initial blood and urine cultures growing GNRs pending speciation and sensitivities. Patient may have ESBL resistant to Zosyn therefore meropenem started, ID consulted. New orders: CBC, CMP, lactate, EKG - sinus tachycardia, 1L NS IV bolus, acetaminophen 650 mg, ID consult, started meropenem 500 mg IV q12h Patient was discussed with the attending, Dr. Stout, and team residents Luis Miranda PGY-3, Abel Scales PGY-1, and Tip Johnson PGY-1. Julita Alvarado, PGY-2
--- NOTE | 2024-07-03 01:00 | PC.NURSE ---
Dr Stout notified of change of condition of pt, at 0021, Rapid Respond was called on pt due to Pulse of 168, an elevated temp of 101.3 and pt was shivering, HEALTH PROGRAM SPECIALIST at bedside at 0022, pt was evaluated for possible sepsis, Sepsis alert was called at 0026, Sepsis order bundle initiated, PRN order of Tylenol 650 mg and 1L Bolus of NS was given.
[2024-07-03 02:35] LABS: Alanine Aminotransferase 36 U/L (10-49); Albumin, Serum 3.7 gm/dL (3.4-4.8); Albumin/Globulin Ratio 1.4 (1.2-2.2); Alkaline Phosphatase 208 U/L (46-116); Anion Gap 14 (7-16); Aspartate Amino Transferase 46 U/L (0-34); BUN/Creatinine Ratio 15 Ratio (12-20); Bilirubin,Total 0.9 mg/dL (0.3-1.2); Blood Urea Nitrogen 51 mg/dL (9-23); Calcium 8.6 mg/dL (8.3-10.6); Calcium (Corrected) 8.8 mg/dL (8.5-10.1); Chloride 104 mMol/L (98-107); Creatinine (Component) 3.4 mg/dL (0.6-1.3); Estimated Creatinine Clearance 22.1 mL/min (>60); Globulin 2.7 gm/dL (2.3-3.5); Glucose 109 mg/dL (74-106); Osmolality,Calculated 281 (275-295); Potassium 3.9 mMol/L (3.4-5.1); Sodium 133 mMol/L (136-145); Total Protein 6.4 gm/dL (5.7-8.2); eGFR 19 See Note
[2024-07-03 02:39] LABS: Carbon Dioxide 14.8 mMol/L (20.0-31.0)
[2024-07-03] MEDS: MEROPENEM INJ 500 MG in SODIUM CHLORIDE 0.9% (P) 50 ML 100 MG IV (02:40)
[2024-07-03 03:49] LABS: Reflex Lactate? Y
[2024-07-03 04:35] LABS: Lactic Acid, 3 HR 0.7 mMol/L (0.4-2.0)
[2024-07-03 04:48] LABS: Basophils % (Auto) 0 % (0-2.5); Eosinophils # (Auto) 0.1 Thou/mm3 (0.0-0.5); Eosinophils % (Auto) 1 % (0-10); Hematocrit 24.8 % (41.0-53.0); Immature Granulocytes % (Auto) 1 % (0-0); Lymphocytes # (Auto) 0.5 Thou/mm3 (1.0-4.8); Lymphocytes % (Auto) 5 % (10-50); Mean Corpuscular HGB Conc 34.3 g/dl (31.0-37.0); Mean Corpuscular Volume 88 fL (80-100); Monocytes # (Auto) 1.2 Thou/mm3 (0.0-0.8); Monocytes % (Auto) 12 % (0-12); Neutrophils # (Auto) 7.4 Thou/mm3 (1.8-7.7); Neutrophils % (Auto) 80 % (37-80); Nucleated Red Blood Cell % 0 /100 WBC (0); Platelet Count 188 Thou/mm3 (140-440); RDW Standard Deviation 42.5 fL (35.1-43.9); Red Blood Count 2.83 Miln/mm3 (4.50-5.90); White Blood Count 9.3 Thou/mm3 (3.8-10.6)
[2024-07-03 05:01] LABS: Hemoglobin 8.5 g/dL (13.5-16.0)
[2024-07-03 05:58] LABS: Alanine Aminotransferase 32 U/L (10-49); Albumin, Serum 3.2 gm/dL (3.4-4.8); Albumin/Globulin Ratio 1.3 (1.2-2.2); Alkaline Phosphatase 180 U/L (46-116); Anion Gap 10 (7-16); Aspartate Amino Transferase 40 U/L (0-34); BUN/Creatinine Ratio 16 Ratio (12-20); Bilirubin,Total 0.9 mg/dL (0.3-1.2); Blood Urea Nitrogen 52 mg/dL (9-23); Calcium 8.1 mg/dL (8.3-10.6); Calcium (Corrected) 8.7 mg/dL (8.5-10.1); Carbon Dioxide 16.9 mMol/L (20.0-31.0); Chloride 105 mMol/L (98-107); Creatinine (Component) 3.2 mg/dL (0.6-1.3); Estimated Creatinine Clearance 23.4 mL/min (>60); Globulin 2.4 gm/dL (2.3-3.5); Glucose 107 mg/dL (74-106); Magnesium 1.5 mg/dL (1.6-2.6); Osmolality,Calculated 278 (275-295); Phosphorous 2.2 mg/dL (2.4-5.1); Potassium 3.3 mMol/L (3.4-5.1); Sodium 132 mMol/L (136-145); Total Protein 5.6 gm/dL (5.7-8.2); eGFR 21 See Note
[2024-07-03] MEDS: PIPER/TAZO 3.375 GM 50 ML IV (08:32)
[2024-07-03] MEDS: Magnesium Sulfate 4 GM Ivpb 4 GM/50 ML BAG IV (08:33)
[2024-07-03] MEDS: TAMSULOSIN HCL 0.4 MG CAPSULE PO (08:33)
[2024-07-03] MEDS: HEPARIN SOD INJ 5000 UNIT/ML VIAL SC ×2 (08:33→21:15)
[2024-07-03] MEDS: gemfibroziL 600 MG TABLET PO ×2 (08:33→21:09)
[2024-07-03] MEDS: DOCUSATE SOD 100 MG CAPSULE PO (08:33)
[2024-07-03] MEDS: POTASSIUM CHLORIDE 10% 20 MEQ/15 ML UDC 40 MEQ PO (08:33)
[2024-07-03] MEDS: MEROPENEM IV ×2 (09:22→21:16)
[2024-07-03] MEDS: SODIUM CHLORIDE 0.9% IV ×2 (09:22→21:16)
--- NOTE | 2024-07-03 09:51 | ESCONSULT_ITS ---
HPI Data of Consult Consult date: 07/03/24 Requesting Physician: Rose Le DO Admitting Provider: Jorge Luis Weiner MD Attending Provider: Rose Le DO Primary Care Provider: Bernadette Sierra MD Consult Narrative Reason for consult: KEELEY serum creatinine 4.5, baseline 0.8 History of present illness: HPI:A 68-year-old male patient with past medical history of hypertension, prostatic cancer status post robotic assisted radical prostatectomy in June 10, came to the hospital due to 3 days history of right loin abdominal pain, nausea, vomiting, diarrhea associated with generalized weakness. patient also reported fever and chills at home in which she used Tylenol [id number]. Patient reported that the stool was watery however today he noticed that there is blood in the stool with significant amount. Patient also reported significant anorexia associated with severe vomiting for 4 days before admission. Patient denied any urinary tract symptoms he mentions that he has lost his ability to control his urine after the procedure. Patient denied any history of kidney disease before. Patient was admitted for treatment of sepsis secondary to gastroenteritis and pyelonephritis on 01 July, yesterday night patient had rapid response alert with the patient found to be septic at that time. His antibiotic apparatus from Zosyn to meropenem. Preliminary report showed bacteremia of GNR in the 4 bottles, urine analysis showed Klebsiella sensitive to most antibiotics. Nephrology team today on 03 July 2024 due to concern of KEELEY. Home medications: Hydroxyzine, losartan, omeprazole, simvastatin PMH: As above Social hx: Alcohol: Socially Tobacco: Denied Illicit drugs: Denied Allergies: No known allergies cc:: cc: Rose Le DO Review of Systems Review of Systems Systems Reviewed: All systems reviewed, normal except as documented Past Medical History Past Medical History NEUROLOGIC: Negative Neurological Disorders or Seizures CARDIAC: Positive Cardiac Disorders, Hypercholesterolemia and Hypertension; Negative Congestive Heart Failure RESPIRATORY: Negative Chronic Obstructive Pulmonary Disease (COPD) GASTROINTESTINAL: Positive Gastrointestinal Disorders and Gastroesophageal Reflux Disease GENITOURINARY: Positive Genitourinary Disorders, Prostate Cancer and Benign Prostatic Hyperplasia; Negative Renal Disease MUSCULOSKELETAL: Positive Musculoskeletal Disorders ENT: Negative History of ENT Problems ENDOCRINE: Negative Endocrine Disorders, Diabetes Mellitus Type 1 or Diabetes Mellitus Type 2 HEMATOLOGIC: Negative Blood Disorders OTHER HISTORY: Positive Cancer and Prostate Cancer; Negative Falls, Blood Transfusions or Anesthesia Reactions Surgical History OTHER SURGICAL HX: Essential hypertension Hyperlipidemia Gastroesophageal reflux is on omeprazole Social History SMOKING STATUS: Never smoker SECOND HAND EXPOSURE: No Exam Vital Signs Temp Pulse Resp BP Pulse Ox O2 Del Method 97.9 F 76 18 108/67 96 Room Air 07/03/24 08:00 07/03/24 08:00 07/03/24 08:00 07/03/24 08:00 07/03/24 08:00 07/03/24 08:00 Narrative Exam GEN: AOx3, able to speak full sentences HEENT: NC/AC, oral mucosa dry, neck supple CVS: RRR, S1-S2 present, no murmurs appreciated RESP: CTAB GI: soft, hypogastric discomfort on palpation, CVA tenderness, NBS MSK: able to move all 4 limbs, no lower extremity edema SKIN: warm and dry [employer]: CN II-XII and Sensation grossly intact. Results Labs 07/03/24 04:20 07/03/24 04:20 Labs: Short CBC 07/03/24 07/03/24 Range/Units 00:40 04:20 WBC 4.0 D 9.3 D (3.8-10.6) Thou/mm3 Hgb 9.9 L 8.5 L (13.5-16.0) g/dL Hct 28.3 L 24.8 L (41.0-53.0) % Plt Count 212 D 188 (140-440) Thou/mm3 BMP 07/03/24 07/03/24 00:40 04:20 Sodium 133 L 132 L Potassium 3.9 D 3.3 L D Chloride 104 105 Carbon Dioxide 14.8 L* 16.9 L BUN 51 H 52 H Creatinine 3.4 H D 3.2 H Glucose 109 H 107 H Calcium 8.6 8.1 L Liver Function 07/03/24 07/03/24 Range/Units 00:40 04:20 Total Bilirubin 0.9 0.9 (0.3-1.2) mg/dL AST 46 H 40 H (0-34) U/L ALT 36 32 (10-49) U/L Alkaline Phosphatase 208 H D 180 H D (46-116) U/L Albumin 3.7 3.2 L D (3.4-4.8) gm/dL Quality Measures Quality Measures sepsis Current suspected stage: sepsis Possible source: GI tract/intra-abdominal Blood cultures ordered: completed in ED Antibiotic ordered: Yes Advance care planning discussed with:: patient Medications Home Medications and Allergies Home Medications ?Medication ?Instructions ?Recorded ?Confirmed ?Type omeprazole 40 mg capsule,delayed 40 mg PO QPM 10/07/17 07/01/24 History release simvastatin 20 mg tablet 20 mg PO QPM 10/07/17 07/01/24 History losartan 25 mg tablet 25 mg PO QPM 11/15/23 07/01/24 History hydroxyzine HCl 25 mg tablet 25 mg PO HS 07/01/24 07/01/24 History Allergies Allergy/AdvReac Type Severity Reaction Status Date / Time No Known Allergies Allergy Verified 07/01/24 10:11 Visit Medications Acetaminophen (Acetaminophen 500 Mg Tablet) 1,000 mg PO Q6H PRN PRN Reason: Fever >100.3 or Pain 1-3 Stop: 08/02/24 00:38 Docusate Sodium (Docusate Sod 100 Mg Capsule) 100 mg PO QDAY [facility]; Protocol Stop: 08/01/24 08:59 Last Admin: 07/03/24 08:33 Dose: 100 mg Gemfibrozil (Gemfibrozil 600 Mg Tablet) 600 mg PO BID [facility] Stop: 08/01/24 08:59 Last Admin: 07/03/24 08:33 Dose: 600 mg Heparin Sodium (Porcine) (Heparin Sod Inj 5000 Unit/Ml Vial) 5,000 unit SC Q12HR [facility] Stop: 07/15/24 20:59 Last Admin: 07/03/24 08:33 Dose: 5,000 unit Hydroxyzine HCl (Hydroxyzine Hcl 25 Mg Tablet) 25 mg PO [facility] Stop: 07/31/24 20:59 Last Admin: 07/02/24 21:06 Dose: 25 mg Piperacillin/Tazobactam/Dextrose (Zosyn) 50 mls @ 12.5 mls/hr IV Q12HR [facility] Stop: 07/08/24 20:59 Last Admin: 07/03/24 08:32 Dose: 12.5 mls/hr Meropenem 500 mg/ Sodium (Chloride) 50 mls @ 100 mls/hr IV Q12HR [facility]; Protocol Stop: 07/10/24 08:59 Last Admin: 07/03/24 09:22 Dose: 100 mls/hr Magnesium Sulfate (Magnesium Sulfate Ivpb) 4 gm in 50 mls @ 12.5 mls/hr IV X1 ONE Stop: 07/03/24 10:56 Last Admin: 07/03/24 08:33 Dose: 12.5 mls/hr Ondansetron HCl (Ondansetron Inj 2 Mg/Ml Inj 2 Ml) 4 mg IV Q6H PRN; Protocol PRN Reason: NAUSEA OR VOMITING Stop: 07/31/24 14:54 Tamsulosin HCl (Tamsulosin Hcl 0.4 Mg Capsule) 0.4 mg PO QDAY SASHA Stop: 07/31/24 15:59 Last Admin: 07/03/24 08:33 Dose: 0.4 mg Discontinued Medications Acetaminophen (Acetaminophen 325 Mg Tablet) 650 mg PO Q6H PRN PRN Reason: Fever >100.5 Stop: 07/31/24 14:54 Last Admin: 07/03/24 00:27 Dose: 650 mg Acetaminophen (Acetaminophen 325 Mg Tablet) 650 mg PO Q6H PRN PRN Reason: PAIN SCALE 1-3 (mild Stop: 07/31/24 14:54 Last Admin: 07/02/24 16:27 Dose: 650 mg Acetaminophen (Acetaminophen 325 Mg Tablet) 1,000 mg PO Q6H PRN PRN Reason: Fever >100.3 or Pain 1-3 Stop: 07/31/24 14:54 Heparin Sodium (Porcine) (Heparin Sod Inj 5000 Unit/Ml Vial) 5,000 unit SC Q8HR SASHA Stop: 07/15/24 21:59 Hydroxyzine HCl (Hydroxyzine Hcl 25 Mg Tablet) 25 mg PO HS SASHA Stop: 08/01/24 20:59 Sodium Chloride (Ns) 1,000 mls @ 999 mls/hr IV .Q1H1M ONE Stop: 07/01/24 11:51 Last Infusion: 07/01/24 12:27 Dose: Infused Potassium Chloride (Kcl Ivpb) 10 meq in 100 mls @ 100 mls/hr IV Q1H SASHA Stop: 07/01/24 16:06 Last Admin: 07/01/24 16:27 Dose: 100 mls/hr Sodium Chloride (Ns) 1,000 mls @ 999 mls/hr IV .Q1H1M ONE Stop: 07/01/24 13:31 Last Infusion: 07/01/24 14:37 Dose: Infused Piperacillin/Tazobactam/Dextrose (Zosyn) 2.25 gm in 50 mls @ 100 mls/hr IV X1 ONE Stop: 07/01/24 13:01 Last Infusion: 07/01/24 14:37 Dose: Infused Ceftriaxone Sodium/Dextrose (Rocephin/D5w 1gm Iv Premix) 50 mls @ 100 mls/hr IV QDAY SASHA Stop: 07/08/24 15:15 Last Infusion: 07/01/24 16:28 Dose: Infused Potassium Chloride (Kcl Ivpb) 10 meq in 100 mls @ 100 mls/hr IV Q1H SASHA Stop: 07/02/24 12:14 Last Admin: 07/02/24 13:49 Dose: 100 mls/hr Meropenem 500 mg/ Sodium (Chloride) 50 mls @ 100 mls/hr IV Q12HR SASHA Stop: 07/10/24 08:59 Sodium Chloride (Ns) 1,000 mls @ 999 mls/hr IV .Q1H1M ONE Stop: 07/03/24 01:33 Last Admin: 07/03/24 00:45 Dose: 999 mls/hr Meropenem 500 mg/ Sodium (Chloride) 50 mls @ 100 mls/hr IV X1 ONE Stop: 07/03/24 03:14 Last Admin: 07/03/24 02:40 Dose: 100 mls/hr Potassium Chloride (Potassium Chloride 20 Meq Tabcr) 40 meq PO X1 ONE Stop: 07/02/24 08:10 Last Admin: 07/02/24 08:28 Dose: 40 meq Potassium Chloride (Potassium Chloride 10% 20 Meq/15 Ml Udc) 40 meq PO X1 ONE Stop: 07/03/24 06:58 Last Admin: 07/03/24 08:33 Dose: 40 meq Assessment & Plan Plan Summary:A 68-year-old male patient with past medical history of hypertension, prostatic cancer status post robotic assisted radical prostatectomy in June 10, came to the hospital due to 3 days history of right loin abdominal pain, nausea, vomiting, diarrhea associated with generalized weakness. Patient was admitted for treatment of sepsis secondary to pyelonephritis/gastroenteritis nephrology team was consulted for KEELEY. Assessment and plan #KEELEY most likely prerenal secondary to dehydration versus renal secondary to sepsis #Hypokalemia #Hypophosphatemia #Hypomagnesemia On presentation patient was septic with pulse rate of 92, WBCs of 13, urine analysis was positive for more than 1000 WBC positive leukoesterase, lactic acid was found to be 3.2 on admission, dehydrated. CT scan was negative for any obstructive lesion or stones. Patient denied any urinary retention His serum creatinine found to be 4.5 on admission, however, 2 months ago his serum creatinine was 0.9. BUN was found to be 57. Today 07/03/2024 his labs showed potassium level of 3.3, bicarb 16.9, anion gap normal, BUN 52, serum creatinine 3.2 magnesium 1.5, phosphate 2.2. Plan ? Serum creatinine continue to improve patient seems to be dehydrated ? Will start the patient on IV fluids 70 mL/h ? Replete electrolytes as needed ? Hold home medications for blood pressure losartan ? Decrease hydroxyzine 50% of his usual dose to 12.5 daily ? Avoid nephrotoxic medications ? Strict in and out Thank you for your consultation, please do not hesitate to reach out if you have any questions or concerns - Patient's plan and care discussed with my attending, Dr. Nephrology Stacia Morfin MD Internal Medicine PGY-2 Attending Provider Attestation/Addendum Patient seen and examined with resident physician Dr. Palomo. Note reviewed, agree with findings and recommendations. Patient admitted with UTI/KEELEY probably related to dehydration. CT abdomen pelvis shows: Large right parapelvic cyst, 13 cm versus congenital ureteropelvic junction obstruction -Urology, Dr. Dexter was consulted currently on Flomax. Creatinine trending down. Will monitor closely. Thank you Dr. Le for allowing me to participate in the care of Mr. Lora. Family at bedside.
[2024-07-03] MEDS: RINGERS LACTATED 1000 ML 1,000 ML 70 ML IV (12:12)
--- NOTE | 2024-07-03 12:42 | PC.SS ---
Rounding: Pt on IV ABX
--- NOTE | 2024-07-03 14:55 | PD.RESPRO ---
Documentation for date of: 07/03/24 Senior resident attestation: Patient evaluated and examined at the bedside, plan of care discussed with rest of the team including my attending physician, except as noted. 68-year-old male with past medical history of prostate CA, s/p robotic-assisted radical prostatectomy at [facility] on 05/20/2024, hypertension, presents to the ED for evaluation of generalized weakness beginning 3 days ago. Patient states having nonbloody watery diarrhea for the past few days. Patient also states having nausea and vomiting as well as right flank pain and decreased p.o. intake. Patient denies any sick contacts at this time. Denies fever, chills, chest pain, shortness of breath, abdominal pain. Patient will be admitted for acute gastroenteritis and KEELEY. Rapid response overnight, abx changed to Meropenem due to concern for ESBL, will follow final cultures to narrow abx. Also placed a formal consult for Dr. Dexter as patient is complaining of pain right flank, persistent fever despite adequate antibiotic coverage, concern for inadequate source control if patient had pyelonephritis of the affected kidney, with a 13 cm parapelvic cyst causing possible obstruction. #Sepsis #GNR Bactremia- #Acute pyelonephritis #KEELEY? prerenal versus postrenal Quresh PGY2 Subjective Subjective Interval history: Patient seen today at bedside Vann, alert, oriented x 3. Overnight patient had rapid response with sepsis alert due to tachycardia chills temperature 101.3 sepsis labs were ordered 1 L NS bolus was given antibiotic coverage was broadened to meropenem. ID specialist Dr Rosado was consulted. Today patient states 1 episode of bloody stools, and downtrending hemoglobin, GI specialist Dr. Villalba was consulted. Urology Dr Dexter was consulted due Large right parapelvic cyst, 13 cm versus congenital ureteropelvic junction obstruction found on CT scan. Exam Vital Signs Temp Pulse Resp BP Pulse Ox O2 Del Method 97.3 F 81 18 112/65 96 Room Air 07/03/24 11:53 07/03/24 12:00 07/03/24 11:53 07/03/24 11:53 07/03/24 11:53 07/03/24 11:53 Narrative Exam Physical Exam GENERAL: NAD, AAOx3 HEENT: Moist mucosa. Eyes open, symmetrical, & clear CARDIO: Heart RRR, no obvious murmurs PULM: No noted coughing/dyspnea CTA B/L, no R/W/R GI: Abdomen soft, nondistended, no pain on palpation. BSx4 SKIN/MSK/EXT: No wounds/rashes/edema/amputations, no pain on palpation. Right flank pain pedal pulses present B/L NEURO: AAOx3, no focal neuro deficits, able to move all 4 extremities Objective Labs 07/04/24 04:15 07/04/24 04:15 Labs: Laboratory Results - last 24 hr 07/03/24 07/03/24 00:40 04:20 WBC 4.0 D 9.3 D RBC 3.22 L 2.83 L Hgb 9.9 L 8.5 L Hct 28.3 L 24.8 L MCV 88 88 MCH 30.7 30.0 MCHC 35.0 34.3 RDW Std Deviation 42.9 42.5 Plt Count 212 D 188 Neut % (Auto) 81 H 80 Lymph % (Auto) 12 5 L [place] % (Auto) 5 12 Eos % (Auto) 1 1 Baso % (Auto) 1 0 Neut # (Auto) 3.3 7.4 Lymph # (Auto) 0.5 L 0.5 L [place] # (Auto) 0.2 1.2 H Eos # (Auto) 0.1 0.1 Baso # (Auto) 0.0 0.0 Immature Gran # (Auto) 0.03 H 0.10 H Absolute Nucleated RBC 0.00 0.00 Immature Gran % 1 H 1 H Nucleated RBC % 0 0 Sodium 133 L 132 L Potassium 3.9 D 3.3 L D Chloride 104 105 Carbon Dioxide 14.8 L* 16.9 L Anion Gap 14 10 BUN 51 H 52 H Creatinine 3.4 H D 3.2 H Estim Creat Clear Calc 22.1 L 23.4 L eGFR 19 L 21 L BUN/Creatinine Ratio 15 16 Glucose 109 H 107 H Calculated Osmolality 281 278 Lactic Acid 2.1 H 0.7 Calcium 8.6 8.1 L Corrected Calcium 8.8 8.7 Phosphorus 2.2 L Magnesium 1.5 L Total Bilirubin 0.9 0.9 AST 46 H 40 H ALT 36 32 Alkaline Phosphatase 208 H D 180 H D Total Protein 6.4 5.6 L Albumin 3.7 3.2 L D Globulin 2.7 2.4 Albumin/Globulin Ratio 1.4 1.3 Quality Measures Quality Measures sepsis Current suspected stage: sepsis Possible source: GI tract/intra-abdominal Blood cultures ordered: completed in ED Antibiotic ordered: Yes Advance care planning discussed with:: patient Assessment & Plan Assessment Current Active Medications: Generic Name Dose Route Start Last Admin Trade Name Freq PRN Reason Stop Dose Admin Acetaminophen 1,000 mg 07/03/24 00:39 Acetaminophen 500 Mg Tablet PO 08/02/24 00:38 Q6H PRN Fever >100.3 or Pain 1-3 Docusate Sodium 100 mg 07/02/24 09:00 07/03/24 08:33 Docusate Sod 100 Mg Capsule PO 08/01/24 08:59 100 mg QDAY SASHA Administration Protocol Gemfibrozil 600 mg 07/02/24 09:00 07/03/24 08:33 Gemfibrozil 600 Mg Tablet PO 08/01/24 08:59 600 mg BID SASHA Administration Heparin Sodium (Porcine) 5,000 unit 07/01/24 21:00 07/03/24 08:33 Heparin Sod Inj 5000 Unit/Ml Vial SC 07/15/24 20:59 5,000 unit Q12HR SASHA Administration Hydroxyzine HCl 12.5 mg 07/03/24 21:00 Hydroxyzine Hcl 25 Mg Tablet PO 08/02/24 20:59 HS SASHA Meropenem 500 mg/ Sodium 50 mls @ 100 mls/hr 07/03/24 09:00 07/03/24 09:22 Chloride IV 07/10/24 08:59 100 mls/hr Q12HR SASHA Administration Protocol Lactated Ringer's 1,000 mls @ 70 mls/hr 07/03/24 11:40 07/03/24 12:12 Lactated Ringers IV 07/04/24 16:14 70 mls/hr .[id number] SASHA Administration Ondansetron HCl 4 mg 07/01/24 14:55 Ondansetron Inj 2 Mg/Ml Inj 2 Ml IV 07/31/24 14:54 Q6H PRN NAUSEA OR VOMITING Protocol Tamsulosin HCl 0.4 mg 07/01/24 16:00 07/03/24 08:33 Tamsulosin Hcl 0.4 Mg Capsule PO 07/31/24 15:59 0.4 mg QDAY SASHA Administration Plan 68-year-old male with past medical history of prostate CA, s/p robotic-assisted radical prostatectomy at [facility] on 05/20/2024, hypertension, presents to the ED for evaluation of generalized weakness beginning 3 days ago. Patient states having nonbloody watery diarrhea for the past few days. Patient also states having nausea and vomiting as well as right flank pain. Admitted for acute gastroenteritis and KEELEY. #Acute gastroenteritis #Pyelonephritis #Sepsis-aborted #GNR bacteremia Patient states having diarrhea for the past 2 days after consuming some suspicious food Patient states having right flank tenderness On med rec patient takes omeprazole On Labs patient has SIRS 2/4 WBCs 13, no fever, no tachycardia, no tachypnea, Lactic acid 3.2, organ dysfunction kidney with KEELEY however repeat lactic acid normalized, procalcitonin >50 currently qSOFA:0, SIRS 1/4, not sepsis UA shows no signs of UTI many WBCs, bacteria CT abdomen pelvis also shows Right perinephric stranding In the ED patient received 2L NS boluses C. difficile negative Blood cultures grew gram-negative rods 2 out of 2 bottles Overnight patient had rapid response with sepsis alert due to tachycardia chills temperature 101.3 sepsis labs were ordered 1 L NS bolus was given antibiotic coverage was broadened to meropenem. ID specialist Dr Rosado was consulted -on meropenem -Follow-up blood cultures -ID Dr Rosado consulted, appreciate recommendations #Acute Kidney Injury-improving likely pre-renal in the setting of decreased po intake and dehydration Creatinine on admission 4.5 Baseline Cr 0.9, current creatinine 4.2 -Renally dose medications -Avoid nephrotoxins -Monitor CMP #Normocytic anemia Hemoglobin has been trending down This a.m. 1 episode of bloody stool was reported FOBT was negative -GI Dr. Villalba was consulted, appreciate recommendations #Troponinemia Likely in the setting of demand ischemia due to underlying infection EKG ordered however not on file, cannot find Troponins 0.058, troponin peaked -No need to trend troponin #Hypokalemia On admission potassium 2.9 -Replete as necessary -Monitor BMP #Hypertension Patient is normotensive at this time -Consider resuming antihypertensives #Renal cyst, right 13 cm #History of prostate cancer CT abdomen pelvis shows: Large right parapelvic cyst, 13 cm versus congenital ureteropelvic junction obstruction -Urology, Dr. Isacc was consulted, appreciate recommendations -Resume Flomax as taken at home Case discussed with my senior Dr. Bhaena PGY-[address] Mimi Duarte MD PGY-1 Disposition: Medtele Fluids: None Feeding: Regular Thrombo prophylaxis: Heparin Gastric Ulcer prophylaxis: None CODE STATUS: Full code Attending Provider Attestation/Addendum Rose Ulloa, , attest that I was physically present for the hall portions of the service and evaluated the patient with the resident and I reviewed and discussed the case with the resident and agree with the resident's findings and plans of care as documented above Patient seen and evaluated this AM. Patient states he is concerned as he had shaking chills overnight. Meropenem was ordered overnight by night team as patient was febrile and tachycardic. Blood cultures were repeated. BCX and ucx positive for GNRs. Will f/u with repeat cultures. Nephro consulted due to KEELEY, continue IV fluid hydration. Spoke with urology regarding large renal cyst on right kidney which appears stable. However, patient complains of pain in right flank. Will f/u with urology recommendations. Patient reported some blood in stool this AM, but admitted to straining and hx of hemorrhoids. Suspect hemorrhoids. Hgb otherwise stable.
[2024-07-03] MEDS: guaiFENesin SYRUP 200 MG/10 ML UDC PO (17:48)
[2024-07-03] MEDS: hydrOXYzine HCL 25 MG TABLET 12.5 MG PO (21:16)
[2024-07-03] MEDS: PANTOPRAZOLE 40 MG TABLET PO (22:02)
[2024-07-03] MEDS: ACETAMINOPHEN 500 MG TABLET 1000 MG PO (22:02)
--- NOTE | 2024-07-03 22:22 | ESCONSULT_ITS ---
HPI Data of Consult Requesting Physician: Rose Le DO Primary Care Provider: Bernadette Sierra MD Consult Narrative Reason for consult: Right flank pain nausea vomiting diarrhea History of present illness: 68 years old male presented to the hospital with weakness nausea vomiting and nonbloody diarrhea for the last 3 to 4 days He had gross electrolyte abnormalities on presentation with WBC count of 13.4 hemoglobin hematocrit 11.0 and 31.9 which is subsequently dropped down to 8.5 and 24.8 He also had a BUN/creatinine of 51 and 3.4 which is subsequently down to 52 and 3.2 He has severe metabolic acidosis with a CO2 of 14.8 which is up to 16.9 patient on 05/20/2024 at robotic radical prostatectomy for prostate carcinoma at [facility] CT scan of the abdomen pelvis done without contrast showed right large parapelvic cyst at 13 cm possibly chronic UPJ obstruction Patient was also found to have urinary tract infection but the urine culture showing greater than 100,000 colony count of Klebsiella and sensitive to Zosyn for which the patient is on C. difficile enterotoxin checkup is negative No stool C&S was obtained Nausea vomiting improving Patient had 3 stools all day today Stool was solid second stool was semiformed Third stool was loose No blood in it Patient also spiked a temperature this evening to 103 ?F requiring Tylenol Does complain of heartburn for which she has been started on pantoprazole cc:: cc: Rose Le DO Review of Systems Review of Systems Systems Reviewed: All systems reviewed, normal except as documented Past Medical History Surgical History OTHER SURGICAL HX: Essential hypertension Hyperlipidemia Gastroesophageal reflux is on omeprazole Meds Home Medications and Allergies Home Medications ?Medication ?Instructions ?Recorded ?Confirmed ?Type omeprazole 40 mg capsule,delayed 40 mg PO QPM 10/07/17 07/01/24 History release simvastatin 20 mg tablet 20 mg PO QPM 10/07/17 07/01/24 History losartan 25 mg tablet 25 mg PO QPM 11/15/23 07/01/24 History hydroxyzine HCl 25 mg tablet 25 mg PO HS 07/01/24 07/01/24 History Allergies Allergy/AdvReac Type Severity Reaction Status Date / Time No Known Allergies Allergy Verified 07/01/24 10:11 Exam Vital Signs Temp Pulse Resp BP Pulse Ox O2 Del Method 100.3 F 79 20 110/58 L 98 Room Air 07/03/24 22:02 07/03/24 20:00 07/03/24 20:00 07/03/24 20:00 07/03/24 20:00 07/03/24 20:00 Constitutional Comments: Chronically ill-appearing Routine Respiratory Exam Comments: Normal to auscultation Routine Abdominal Exam Comments: Soft minimally tender positive bowel sounds Results Labs 07/03/24 04:20 07/03/24 04:20 Labs: Short CBC 07/03/24 07/03/24 Range/Units 00:40 04:20 WBC 4.0 D 9.3 D (3.8-10.6) Thou/mm3 Hgb 9.9 L 8.5 L (13.5-16.0) g/dL Hct 28.3 L 24.8 L (41.0-53.0) % Plt Count 212 D 188 (140-440) Thou/mm3 BMP 07/03/24 07/03/24 00:40 04:20 Sodium 133 L 132 L Potassium 3.9 D 3.3 L D Chloride 104 105 Carbon Dioxide 14.8 L* 16.9 L BUN 51 H 52 H Creatinine 3.4 H D 3.2 H Glucose 109 H 107 H Calcium 8.6 8.1 L Liver Function 07/03/24 07/03/24 Range/Units 00:40 04:20 Total Bilirubin 0.9 0.9 (0.3-1.2) mg/dL AST 46 H 40 H (0-34) U/L ALT 36 32 (10-49) U/L Alkaline Phosphatase 208 H D 180 H D (46-116) U/L Albumin 3.7 3.2 L D (3.4-4.8) gm/dL Assessment and Plan Additional Assessment & Plan Additional Plan: # Nausea vomiting nonbloody diarrhea appears to be a case of infectious enterocolitis to some extent improving C. difficile enterotoxin is negative Recommend culture and sensitivity from the stool Diarrhea is already improving Nausea vomiting has improved Will continue to monitor No invasive GI workup planned at this time # Severe metabolic acidosis with prerenal azotemia Patient on IV fluids # Klebsiella pyelonephritis on Zosyn which he is sensitive to # Drop in hemoglobin hematocrit is probably dilutional Once patient's condition improves patient most likely will need invasive GI workup as there is a significant drop Recommend stool for occult blood Iron panel B12 and folate level Which I have ordered Thank you very much for the opportunity to participate in the care of this patient
[2024-07-03 23:58] LABS: OBS Card Lot # 22002; OBS Developer Lot # 23003; OBS Performed By verah; OBS QC OK? Yes; Occult Blood, Stool Negative (Negative)
[2024-07-04] VITALS (7 sets, daily range): BP systolic 96–132; BP diastolic 52–75; PULSE 63–106; RESP 16–20; TEMP 36.2–37.2; O2SAT 95–98; BMI 24.0
[2024-07-04 03:00] LABS: Total Iron Binding Capacity 175 mcg/dL (250-425)
[2024-07-04 03:09] LABS: Iron 10 mcg/dL (65-175); Percent Iron Saturation 5 % (20-55); Unsaturated Iron Binding 165 (225-295)
[2024-07-04 05:52] LABS: Basophils % (Auto) 0 % (0-2.5); Eosinophils # (Auto) 0.2 Thou/mm3 (0.0-0.5); Eosinophils % (Auto) 2 % (0-10); Hematocrit 26.5 % (41.0-53.0); Hemoglobin 9.1 g/dL (13.5-16.0); Immature Granulocytes % (Auto) 1 % (0-0); Immature Granulocytes Auto 0.13 Thou/mm3 (0.00-0.00); Lymphocytes # (Auto) 0.7 Thou/mm3 (1.0-4.8); Lymphocytes % (Auto) 7 % (10-50); Mean Corpuscular HGB Conc 34.3 g/dl (31.0-37.0); Mean Corpuscular Volume 88 fL (80-100); Monocytes # (Auto) 1.1 Thou/mm3 (0.0-0.8); Monocytes % (Auto) 11 % (0-12); Neutrophils # (Auto) 7.8 Thou/mm3 (1.8-7.7); Neutrophils % (Auto) 79 % (37-80); Nucleated Red Blood Cell % 0 /100 WBC (0); Platelet Count 218 Thou/mm3 (140-440); RDW Standard Deviation 43.7 fL (35.1-43.9); Red Blood Count 3.03 Miln/mm3 (4.50-5.90); White Blood Count 9.9 Thou/mm3 (3.8-10.6)
[2024-07-04] MEDS: RINGERS LACTATED 1000 ML 1,000 ML 70 ML IV (06:21)
[2024-07-04 06:37] LABS: Alanine Aminotransferase 41 U/L (10-49); Albumin, Serum 3.3 gm/dL (3.4-4.8); Albumin/Globulin Ratio 1.4 (1.2-2.2); Alkaline Phosphatase 236 U/L (46-116); Anion Gap 11 (7-16); Aspartate Amino Transferase 49 U/L (0-34); BUN/Creatinine Ratio 17 Ratio (12-20); Bilirubin,Total 0.9 mg/dL (0.3-1.2); Blood Urea Nitrogen 43 mg/dL (9-23); Calcium 8.9 mg/dL (8.3-10.6); Calcium (Corrected) 9.5 mg/dL (8.5-10.1); Carbon Dioxide 18.5 mMol/L (20.0-31.0); Chloride 104 mMol/L (98-107); Creatinine (Component) 2.6 mg/dL (0.6-1.3); Estimated Creatinine Clearance 28.9 mL/min (>60); Globulin 2.4 gm/dL (2.3-3.5); Glucose 96 mg/dL (74-106); Magnesium 2.3 mg/dL (1.6-2.6); Osmolality,Calculated 277 (275-295); Phosphorous 2.8 mg/dL (2.4-5.1); Potassium 4.7 mMol/L (3.4-5.1); Sodium 133 mMol/L (136-145); Total Protein 5.7 gm/dL (5.7-8.2); eGFR 26 See Note
[2024-07-04 07:06] LABS: Folate 9.51 ng/mL (>5.38); Vitamin B12 657 pg/mL (211-911)
--- NOTE | 2024-07-04 08:17 | PD.IDPROG ---
Subjective Subjective Interval history: transient fever. bc pos and ua pos too. striking ua.bacteremia likely of urinary origin given other neg studies and progress noted. Exam Vital Signs Temp Pulse Resp BP Pulse Ox O2 Del Method 97.9 F 69 16 99/65 98 Room Air 07/04/24 04:00 07/04/24 04:00 07/04/24 04:00 07/04/24 04:00 07/04/24 04:00 07/04/24 04:00 Narrative Exam see dictation. Objective - Internal Medicine Labs 07/04/24 04:15 07/04/24 04:15 Labs: Laboratory Results - last 24 hr 07/03/24 07/03/24 07/04/24 04:20 23:41 04:15 WBC 9.9 RBC 3.03 L Hgb 9.1 L Hct 26.5 L MCV 88 MCH 30.0 MCHC 34.3 RDW Std Deviation 43.7 Plt Count 218 D Neut % (Auto) 79 Lymph % (Auto) 7 L [place] % (Auto) 11 Eos % (Auto) 2 Baso % (Auto) 0 Neut # (Auto) 7.8 H Lymph # (Auto) 0.7 L [place] # (Auto) 1.1 H Eos # (Auto) 0.2 Baso # (Auto) 0.0 Immature Gran # (Auto) 0.13 H Absolute Nucleated RBC 0.00 Immature Gran % 1 H Nucleated RBC % 0 Sodium 133 L Potassium 4.7 D Chloride 104 Carbon Dioxide 18.5 L Anion Gap 11 BUN 43 H Creatinine 2.6 H D Estim Creat Clear Calc 28.9 L eGFR 26 L BUN/Creatinine Ratio 17 Glucose 96 Calculated Osmolality 277 Calcium 8.9 Corrected Calcium 9.5 Phosphorus 2.8 Magnesium 2.3 Iron 10 L TIBC 175 L Iron Saturation 5 L Unsat Iron Binding 165 L Total Bilirubin 0.9 AST 49 H ALT 41 Alkaline Phosphatase 236 H D Total Protein 5.7 Albumin 3.3 L Globulin 2.4 Albumin/Globulin Ratio 1.4 Vitamin B12 657 Folate 9.51 Stool Occult Blood Negative Assessment & Plan A&P Narrative bacteremia, likely from urine uti, see ua htn hld changed merrem to po keflex and adjusted for alecia, ok to adjust further if renal status improves more with time will check in again on Sunday, ok to change if germ in bc is different, but so far that does not seem to be the case. empiric merrem use noted. Time Spent With Patient Time: Total time spent is greater than 50% in coordination of care (as documented) at patient's floor/unit and/or counseling patient:
[2024-07-04] MEDS: HEPARIN SOD INJ 5000 UNIT/ML VIAL SC ×2 (09:20→20:38)
[2024-07-04] MEDS: cephALEXin 250 MG CAPSULE PO (09:20)
[2024-07-04] MEDS: TAMSULOSIN HCL 0.4 MG CAPSULE PO (09:21)
[2024-07-04] MEDS: gemfibroziL 600 MG TABLET PO ×2 (09:21→20:42)
[2024-07-04] MEDS: PANTOPRAZOLE 40 MG TABLET PO (09:21)
--- NOTE | 2024-07-04 09:23 | PD.RESPRO ---
Documentation for date of: 07/04/24 Subjective Subjective Interval history: A 68-year-old male patient with past medical history of hypertension, prostatic cancer status post robotic assisted radical prostatectomy in June 10, came to the hospital due to 3 days history of right loin abdominal pain, nausea, vomiting, diarrhea associated with generalized weakness. Patient was admitted for treatment of sepsis secondary to pyelonephritis/gastroenteritis nephrology team was consulted for KEELEY. Patient was seen and examined at bedside. Denied any new symptoms, vital stable, Hemoglobin stable at 9.1, WBC 9, sodium 133 potassium 4.7 carbon dioxide is improving 18.5 non-anion gap, serum creatinine 2.6 down trended from 3.2 yesterday. Other electrolytes within normal limits. He is still on 70 mL of fluids per hour will finish by the 6 PM today. Exam Vital Signs Temp Pulse Resp BP Pulse Ox O2 Del Method 97.9 F 69 16 99/65 98 Room Air 07/04/24 04:00 07/04/24 04:00 07/04/24 04:00 07/04/24 04:00 07/04/24 04:00 07/04/24 04:00 Narrative Exam GEN: AOx3, able to speak full sentences HEENT: NC/AC, oral mucosa dry, neck supple CVS: RRR, S1-S2 present, no murmurs appreciated RESP: CTAB GI: soft, hypogastric discomfort on palpation, CVA tenderness, NBS MSK: able to move all 4 limbs, no lower extremity edema SKIN: warm and dry [employer]UFA[employer]URING ASSOCIATE: CN II-XII and Sensation grossly intact. Objective Labs 07/05/24 05:35 07/05/24 05:35 Labs: Laboratory Results - last 24 hr 07/03/24 07/03/24 07/04/24 04:20 23:41 04:15 WBC 9.9 RBC 3.03 L Hgb 9.1 L Hct 26.5 L MCV 88 MCH 30.0 MCHC 34.3 RDW Std Deviation 43.7 Plt Count 218 D Neut % (Auto) 79 Lymph % (Auto) 7 L [place] % (Auto) 11 Eos % (Auto) 2 Baso % (Auto) 0 Neut # (Auto) 7.8 H Lymph # (Auto) 0.7 L [place] # (Auto) 1.1 H Eos # (Auto) 0.2 Baso # (Auto) 0.0 Immature Gran # (Auto) 0.13 H Absolute Nucleated RBC 0.00 Immature Gran % 1 H Nucleated RBC % 0 Sodium 133 L Potassium 4.7 D Chloride 104 Carbon Dioxide 18.5 L Anion Gap 11 BUN 43 H Creatinine 2.6 H D Estim Creat Clear Calc 28.9 L eGFR 26 L BUN/Creatinine Ratio 17 Glucose 96 Calculated Osmolality 277 Calcium 8.9 Corrected Calcium 9.5 Phosphorus 2.8 Magnesium 2.3 Iron 10 L TIBC 175 L Iron Saturation 5 L Unsat Iron Binding 165 L Total Bilirubin 0.9 AST 49 H ALT 41 Alkaline Phosphatase 236 H D Total Protein 5.7 Albumin 3.3 L Globulin 2.4 Albumin/Globulin Ratio 1.4 Vitamin B12 657 Folate 9.51 Stool Occult Blood Negative Quality Measures Quality Measures sepsis Current suspected stage: sepsis Possible source: GI tract/intra-abdominal Blood cultures ordered: completed in ED Antibiotic ordered: Yes Advance care planning discussed with:: patient Assessment & Plan Assessment Current Active Medications: Generic Name Dose Route Start Last Admin Trade Name Freq PRN Reason Stop Dose Admin Acetaminophen 1,000 mg 07/03/24 00:39 07/03/24 22:02 Acetaminophen 500 Mg Tablet PO 08/02/24 00:38 1,000 mg Q6H PRN Administration Fever >100.3 or Pain 1-3 Cephalexin HCl 250 mg 07/04/24 09:00 Cephalexin 250 Mg Capsule PO 07/11/24 08:59 BID SASHA Docusate Sodium 100 mg 07/02/24 09:00 07/03/24 08:33 Docusate Sod 100 Mg Capsule PO 08/01/24 08:59 100 mg QDAY SASHA Administration Protocol Gemfibrozil 600 mg 07/02/24 09:00 07/03/24 21:09 Gemfibrozil 600 Mg Tablet PO 08/01/24 08:59 600 mg BID SASHA Administration Guaifenesin 200 mg 07/03/24 17:20 07/03/24 17:48 Guaifenesin Syrup 200 Mg/10 Ml Udc PO 08/02/24 17:29 200 mg TID PRN Administration Cough Protocol Heparin Sodium (Porcine) 5,000 unit 07/01/24 21:00 07/03/24 21:15 Heparin Sod Inj 5000 Unit/Ml Vial SC 07/15/24 20:59 5,000 unit Q12HR SASHA Administration Hydroxyzine HCl 12.5 mg 07/03/24 21:00 07/03/24 21:16 Hydroxyzine Hcl 25 Mg Tablet PO 08/02/24 20:59 12.5 mg HS SASHA Administration Lactated Ringer's 1,000 mls @ 70 mls/hr 07/03/24 11:40 07/04/24 06:21 Lactated Ringers IV 07/04/24 16:14 70 mls/hr .[id number] SASHA Administration Ondansetron HCl 4 mg 07/01/24 14:55 Ondansetron Inj 2 Mg/Ml Inj 2 Ml IV 07/31/24 14:54 Q6H PRN NAUSEA OR VOMITING Protocol Pantoprazole Sodium 40 mg 07/04/24 09:00 Pantoprazole 40 Mg Tablet PO 08/03/24 08:59 QDAY SASHA Tamsulosin HCl 0.4 mg 07/01/24 16:00 07/03/24 08:33 Tamsulosin Hcl 0.4 Mg Capsule PO 07/31/24 15:59 0.4 mg QDAY SASHA Administration Plan Summary:A 68-year-old male patient with past medical history of hypertension, prostatic cancer status post robotic assisted radical prostatectomy in June 10, came to the hospital due to 3 days history of right loin abdominal pain, nausea, vomiting, diarrhea associated with generalized weakness. Patient was admitted for treatment of sepsis secondary to pyelonephritis/gastroenteritis nephrology team was consulted for KEELEY. Assessment and plan #KEELEY most likely prerenal secondary to dehydration versus renal secondary to sepsis #Hypokalemia #Hypophosphatemia #Hypomagnesemia On presentation patient was septic with pulse rate of 92, WBCs of 13, urine analysis was positive for more than 1000 WBC positive leukoesterase, lactic acid was found to be 3.2 on admission, dehydrated. CT scan was negative for any obstructive lesion or stones. Patient denied any urinary retention His serum creatinine found to be 4.5 on admission, however, 2 months ago his serum creatinine was 0.9. BUN was found to be 57. Today 07/03/2024 his labs showed potassium level of 3.3, bicarb 16.9, anion gap normal, BUN 52, serum creatinine 3.2 magnesium 1.5, phosphate 2.2. Plan ? Serum creatinine continue to improve patient seems to be dehydrated ? Continue patient on IV fluids 70 mL/h ? Replete electrolytes as needed ? Hold home medications for blood pressure losartan ? Decrease hydroxyzine 50% of his usual dose to 12.5 daily ? Avoid nephrotoxic medications ? Strict in and out Thank you for your consultation, please do not hesitate to reach out if you have any questions or concerns - Patient's plan and care discussed with my attending, Nephsamantha Morfin MD Internal Medicine PGY-2 Attending Provider Attestation/Addendum Patient seen and examined with resident physician Dr. Palomo. Note reviewed, agree with findings and recommendations. BUN and creatinine improving. Continue with gentle IV fluids. Patient with pyelonephritis.
--- NOTE | 2024-07-04 09:53 | PC.SS ---
Follow up note: Pending work up with Dr. Villalba. Dr. Lopez is consulting. Pt will return home upon dc.
--- NOTE | 2024-07-04 11:42 | ESCONSULT_ITS ---
RE: PILI HARRISON : 1955 DATE OF CONSULTATION: 07/04/2024 REFERRING PHYSICIAN: Jorge Luis Weiner MD REASON FOR CONSULTATION: Diarrhea and fever in an otherwise 68-year-old man. HISTORY OF PRESENT ILLNESS: The patient is a 68-year-old with a limited past history. He has a prior BPH for which he underwent surgery at [facility] some time ago. He denies other health problems. He appears to have some chronic kidney disease that may be related to his BPH. He has some anemia, which may be related to the chronic kidney disease. He has been affected by it and his creatinine seems to be improving slowly, but is still in a range where he probably needs adjustment of his medication. Various studies were done to evaluate for other causes of diarrhea, they have been negative. The patient has positive blood cultures with gram-negative pauly . UA shows 1300 white cells. He does have urinary incontinence ever since his BPH, so I am going to treat him for that for now with 7 days of antibiotic PHYSICAL EXAMINATION: Benign. PAST MEDICAL HISTORY: Include BPH and urinary incontinence. PAST SURGICAL HISTORY: Include BPH surgery at [facility] in the past year. ALLERGIES: NONE NOTED. IMMUNIZATIONS: Last tetanus is not known. He does not take a flu shot every year. He is unsure about prior COVID vaccines and pneumococcal vaccine. FAMILY HISTORY: Positive for cancer in his father, type unknown. SOCIAL HISTORY: He lives alone. He is a nonsmoker. He works. 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 He speaks a mixture of Albanian and Chinese. PE: benign at the moment. PLAN: His blood cultures are positive for gram-negative rods. He states he does not quite feel well enough. He can probably go home tomorrow. As long as the germ in the blood is the same as one in the urine and they should respond well enough to go home as soon as tomorrow. I will see him in person on Sunday if he remains, but if he goes home before, then that would be fine. I will look forward to seeing him on Sunday if he remains. DT: 09:14:07 TT: 10:36:00 Ref: [id number] - TID: [id number] [facility]
[2024-07-04] MEDS: LEVOFLOXACIN 250 MG TABLET 750 MG PO (11:45)
[2024-07-04] MEDS: ACETAMINOPHEN 500 MG TABLET 1000 MG PO ×2 (11:50→23:42)
--- NOTE | 2024-07-04 13:45 | PD.RESPRO ---
Documentation for date of: 07/04/24 Senior resident attestation: Patient evaluated and examined at the bedside, plan of care discussed with rest of the team including my attending physician, except as noted. 68-year-old male with past medical history of prostate CA, s/p robotic-assisted radical prostatectomy at [facility] on 05/20/2024, hypertension, presents to the ED for evaluation of generalized weakness beginning 3 days ago. Patient states having nonbloody watery diarrhea for the past few days. Patient also states having nausea and vomiting as well as right flank pain and decreased p.o. intake. Patient denies any sick contacts at this time. Denies fever, chills, chest pain, shortness of breath, abdominal pain. Patient will be admitted for acute gastroenteritis and KEELEY. Rapid response overnight, abx changed to Meropenem due to concern for ESBL, will follow final cultures to narrow abx. Also placed a formal consult for Dr. Dexter as patient is complaining of pain right flank, persistent fever despite adequate antibiotic coverage, concern for inadequate source control if patient had pyelonephritis of the affected kidney, with a 13 cm parapelvic cyst causing possible obstruction. Repeat Blood cultures negative in 24 hours, GNR speciated to klebsiella which is failrly sensitive, Infectious disease specialist is consulted. Continue antibiotics, per ID recs #Sepsis #Klebsiella Bactremia- #Acute pyelonephritis 2/2 Klebsiella #KEELEY? prerenal versus postrenal Quresh PGY2 Subjective Subjective Interval history: Patient seen today at the bedside fine awake, alert, oriented x 3. No overnight events reported. Vital signs stable at this time. Labs significant for improving renal function. Started on levofloxacin which was renally dosed. Currently pending urology Dr Dexter recommendations. Bladder scan ordered as per urology recommendations. Stool culture still pending. Exam Vital Signs Temp Pulse Resp BP Pulse Ox O2 Del Method 97.5 F 66 16 111/64 98 Room Air 07/04/24 12:00 07/04/24 12:00 07/04/24 12:00 07/04/24 12:00 07/04/24 12:07/04/24 12:00 Narrative Exam Physical Exam GENERAL: NAD, AAOx3 HEENT: Moist mucosa. Eyes open, symmetrical, & clear CARDIO: Heart RRR, no obvious murmurs PULM: No noted coughing/dyspnea CTA B/L, no R/W/R GI: Abdomen soft, nondistended, no pain on palpation. BSx4 SKIN/MSK/EXT: No wounds/rashes/edema/amputations, no pain on palpation. Right flank pain pedal pulses present B/L NEURO: AAOx3, no focal neuro deficits, able to move all 4 extremities Objective Labs 07/05/24 05:35 07/05/24 05:35 Labs: Laboratory Results - last 24 hr 07/03/24 07/03/24 07/04/24 04:20 23:41 04:15 WBC 9.9 RBC 3.03 L Hgb 9.1 L Hct 26.5 L MCV 88 MCH 30.0 MCHC 34.3 RDW Std Deviation 43.7 Plt Count 218 D Neut % (Auto) 79 Lymph % (Auto) 7 L [place] % (Auto) 11 Eos % (Auto) 2 Baso % (Auto) 0 Neut # (Auto) 7.8 H Lymph # (Auto) 0.7 L [place] # (Auto) 1.1 H Eos # (Auto) 0.2 Baso # (Auto) 0.0 Immature Gran # (Auto) 0.13 H Absolute Nucleated RBC 0.00 Immature Gran % 1 H Nucleated RBC % 0 Sodium 133 L Potassium 4.7 D Chloride 104 Carbon Dioxide 18.5 L Anion Gap 11 BUN 43 H Creatinine 2.6 H D Estim Creat Clear Calc 28.9 L eGFR 26 L BUN/Creatinine Ratio 17 Glucose 96 Calculated Osmolality 277 Calcium 8.9 Corrected Calcium 9.5 Phosphorus 2.8 Magnesium 2.3 Iron 10 L TIBC 175 L Iron Saturation 5 L Unsat Iron Binding 165 L Total Bilirubin 0.9 AST 49 H ALT 41 Alkaline Phosphatase 236 H D Total Protein 5.7 Albumin 3.3 L Globulin 2.4 Albumin/Globulin Ratio 1.4 Vitamin B12 657 Folate 9.51 Stool Occult Blood Negative Quality Measures Quality Measures sepsis Current suspected stage: sepsis Possible source: GI tract/intra-abdominal Blood cultures ordered: completed in ED Antibiotic ordered: Yes Advance care planning discussed with:: patient Assessment & Plan Assessment Current Active Medications: Generic Name Dose Route Start Last Admin Trade Name Freq PRN Reason Stop Dose Admin Acetaminophen 1,000 mg 07/03/24 00:39 07/04/24 11:50 Acetaminophen 500 Mg Tablet PO 08/02/24 00:38 1,000 mg Q6H PRN Administration Fever >100.3 or Pain 1-3 Docusate Sodium 100 mg 07/02/24 09:00 07/04/24 09:21 Docusate Sod 100 Mg Capsule PO 08/01/24 08:59 Not Given QDAY SASHA Protocol Gemfibrozil 600 mg 07/02/24 09:00 07/04/24 09:21 Gemfibrozil 600 Mg Tablet PO 08/01/24 08:59 600 mg BID SASHA Administration Guaifenesin 200 mg 07/03/24 17:20 07/03/24 17:48 Guaifenesin Syrup 200 Mg/10 Ml Udc PO 08/02/24 17:29 200 mg TID PRN Administration Cough Protocol Heparin Sodium (Porcine) 5,000 unit 07/01/24 21:00 07/04/24 09:20 Heparin Sod Inj 5000 Unit/Ml Vial SC 07/15/24 20:59 5,000 unit Q12HR SASHA Administration Hydroxyzine HCl 12.5 mg 07/03/24 21:00 07/03/24 21:16 Hydroxyzine Hcl 25 Mg Tablet PO 08/02/24 20:59 12.5 mg HS SASHA Administration Lactated Ringer's 1,000 mls @ 70 mls/hr 07/03/24 11:40 07/04/24 06:21 Lactated Ringers IV 07/04/24 16:14 70 mls/hr .[id number] SASHA Administration Levofloxacin 750 mg 07/04/24 10:45 07/04/24 11:45 Levofloxacin 250 Mg Tablet PO 07/11/24 10:44 750 mg Q48H SASHA Administration Ondansetron HCl 4 mg 07/01/24 14:55 Ondansetron Inj 2 Mg/Ml Inj 2 Ml IV 07/31/24 14:54 Q6H PRN NAUSEA OR VOMITING Protocol Pantoprazole Sodium 40 mg 07/04/24 09:00 07/04/24 09:21 Pantoprazole 40 Mg Tablet PO 08/03/24 08:59 40 mg QDAY SASHA Administration Tamsulosin HCl 0.4 mg 07/01/24 16:00 07/04/24 09:21 Tamsulosin Hcl 0.4 Mg Capsule PO 07/31/24 15:59 0.4 mg QDAY SASHA Administration Plan 68-year-old male with past medical history of prostate CA, s/p robotic-assisted radical prostatectomy at [facility] on 05/20/2024, hypertension, presents to the ED for evaluation of generalized weakness beginning 3 days ago. Patient states having nonbloody watery diarrhea for the past few days. Patient also states having nausea and vomiting as well as right flank pain. Admitted for acute gastroenteritis and KEEELY. #Acute gastroenteritis #Pyelonephritis #Sepsis #Klebsiella pneumonia bacteremia Patient states having diarrhea for the past 2 days after consuming some suspicious food Patient states having right flank tenderness On med rec patient takes omeprazole On Labs patient has SIRS 2/4 WBCs 13, no fever, no tachycardia, no tachypnea, Lactic acid 3.2, organ dysfunction kidney with KEELEY however repeat lactic acid normalized, procalcitonin >50 currently qSOFA:0, SIRS 1/4, not sepsis UA shows no signs of UTI many WBCs, bacteria CT abdomen pelvis also shows Right perinephric stranding In the ED patient received 2L NS boluses C. difficile negative, Blood cultures grew gram-negative rods 2 out of 2 bottles 07/03/2024 Overnight patient had rapid response with sepsis alert due to tachycardia chills temperature 101.3 sepsis labs were ordered 1 L NS bolus was given antibiotic coverage was broadened to meropenem. Blood cultures negative in 24 hours -on levofloxacin 750 mg every 48 hours - stool cultures pending -ID Dr Rosado consulted, appreciate recommendations #Acute Kidney Injury-improving likely pre-renal in the setting of decreased po intake and dehydration Creatinine on admission 4.5 Baseline Cr 0.9, current creatinine 4.2 -Renally dose medications -Avoid nephrotoxins -Monitor CMP #Normocytic anemia Hemoglobin has been trending down This a.m. 1 episode of bloody stool was reported FOBT was negative -GI Dr. Villalba was consulted, appreciate recommendations #Troponinemia Likely in the setting of demand ischemia due to underlying infection EKG ordered however not on file, cannot find Troponins 0.058, troponin peaked -No need to trend troponin #Hypokalemia On admission potassium 2.9 -Replete as necessary -Monitor BMP #Hypertension Patient is normotensive at this time -Consider resuming antihypertensives #Renal cyst, right 13 cm #History of prostate cancer CT abdomen pelvis shows: Large right parapelvic cyst, 13 cm versus congenital ureteropelvic junction obstruction -Urology, Dr. Dexetr was consulted, appreciate recommendations - bladder scan ordered -Resume Flomax as taken at home Case discussed with my senior Dr. Bahena PGY-[address] Mimi Duarte MD PGY-1 Disposition: Medtele Fluids: None Feeding: Regular Thrombo prophylaxis: Heparin Gastric Ulcer prophylaxis: None CODE STATUS: Full code Attending Provider Attestation/Addendum IRose, DO, attest that I was physically present for the hall portions of the service and evaluated the patient with the resident and I reviewed and discussed the case with the resident and agree with the resident's findings and plans of care as documented above Patient seen and evaluated this AM. Meropenem discontinued by ID and switched to keflex. However, blood culture is positive for klebsiella, as is urine, but resistent to cefazolin. Will switch to fluoroquinolone which is sensitive to both cultures. Will f/u with final cultures and sensitivities of repeat bcx. Renal function improving. Continue with IV fluids
--- NOTE | 2024-07-04 14:04 | PC.NURSE ---
Bladder scan completed per request of Reinier, 71ml noted in the bladder. Called Isacc and informed him
--- NOTE | 2024-07-04 14:34 | ESPR_ITS ---
Documentation for date of: 07/04/24 Subjective Subjective Interval history: Patient evaluated Clinically improving CO2 is up to 18.5 improving metabolic acidosis Iron saturation is only 5% B12 657 Folate level is 9.51 Still spiking temperatures Stool culture and sensitivity pending Stool culture and sensitivity is negative and patient's condition improved as he had a bloody diarrhea last night Will consider doing a colonoscopy with biopsies on upper endoscopy prior to discharge Exam Vital Signs Temp Pulse Resp BP Pulse Ox O2 Del Method 97.5 F 66 16 111/64 98 Room Air 07/04/24 12:00 07/04/24 12:00 07/04/24 12:00 07/04/24 12:00 07/04/24 12:00 07/04/24 12:00 Constitutional Comments: Alert oriented Routine Respiratory Exam Comments: Normal to auscultation Routine Abdominal Exam Comments: Somewhat distended positive bowel sounds Objective Labs 07/04/24 04:15 07/04/24 04:15 Labs: Laboratory Results - last 24 hr 07/03/24 07/03/24 07/04/24 04:20 23:41 04:15 WBC 9.9 RBC 3.03 L Hgb 9.1 L Hct 26.5 L MCV 88 MCH 30.0 MCHC 34.3 RDW Std Deviation 43.7 Plt Count 218 D Neut % (Auto) 79 Lymph % (Auto) 7 L [place] % (Auto) 11 Eos % (Auto) 2 Baso % (Auto) 0 Neut # (Auto) 7.8 H Lymph # (Auto) 0.7 L [place] # (Auto) 1.1 H Eos # (Auto) 0.2 Baso # (Auto) 0.0 Immature Gran # (Auto) 0.13 H Absolute Nucleated RBC 0.00 Immature Gran % 1 H Nucleated RBC % 0 Sodium 133 L Potassium 4.7 D Chloride 104 Carbon Dioxide 18.5 L Anion Gap 11 BUN 43 H Creatinine 2.6 H D Estim Creat Clear Calc 28.9 L eGFR 26 L BUN/Creatinine Ratio 17 Glucose 96 Calculated Osmolality 277 Calcium 8.9 Corrected Calcium 9.5 Phosphorus 2.8 Magnesium 2.3 Iron 10 L TIBC 175 L Iron Saturation 5 L Unsat Iron Binding 165 L Total Bilirubin 0.9 AST 49 H ALT 41 Alkaline Phosphatase 236 H D Total Protein 5.7 Albumin 3.3 L Globulin 2.4 Albumin/Globulin Ratio 1.4 Vitamin B12 657 Folate 9.51 Stool Occult Blood Negative Impressions Impression: # Bloody diarrhea # Unexplained iron deficiency anemia iron saturation only 5% # Nausea vomiting improving # Metabolic acidosis improving # Klebsiella pyelonephritis Wait for the culture and sensitivity Of the stool if negative will consider invasive GI workup Assessment & Plan A&P Narrative bacteremia, likely from urine uti, see ua htn hld changed merrem to po keflex and adjusted for alecia, ok to adjust further if renal status improves more with time will check in again on Sunday, ok to change if germ in bc is different, but so far that does not seem to be the case. empiric merrem use noted. Time Spent With Patient Time: Total time spent is greater than 50% in coordination of care (as documented) at patient's floor/unit and/or counseling patient:
[2024-07-04] MEDS: hydrOXYzine HCL 25 MG TABLET 12.5 MG PO (20:42)
[2024-07-05] VITALS (7 sets, daily range): BP systolic 118–144; BP diastolic 80–85; PULSE 75–96; RESP 16–20; TEMP 36.2–37.3; O2SAT 95–97
[2024-07-05 06:17] LABS: Basophils % (Auto) 0 % (0-2.5); Eosinophils # (Auto) 0.3 Thou/mm3 (0.0-0.5); Eosinophils % (Auto) 3 % (0-10); Hematocrit 31.4 % (41.0-53.0); Hemoglobin 10.6 g/dL (13.5-16.0); Immature Granulocytes % (Auto) 3 % (0-0); Immature Granulocytes Auto 0.34 Thou/mm3 (0.00-0.00); Lymphocytes # (Auto) 1.4 Thou/mm3 (1.0-4.8); Lymphocytes % (Auto) 14 % (10-50); Mean Corpuscular HGB Conc 33.8 g/dl (31.0-37.0); Mean Corpuscular Volume 89 fL (80-100); Monocytes # (Auto) 1.3 Thou/mm3 (0.0-0.8); Monocytes % (Auto) 13 % (0-12); Neutrophils # (Auto) 6.7 Thou/mm3 (1.8-7.7); Neutrophils % (Auto) 66 % (37-80); Nucleated Red Blood Cell % 0 /100 WBC (0); Platelet Count 345 Thou/mm3 (140-440); RDW Standard Deviation 45.4 fL (35.1-43.9); Red Blood Count 3.53 Miln/mm3 (4.50-5.90); White Blood Count 10.2 Thou/mm3 (3.8-10.6)
[2024-07-05 06:47] LABS: Alanine Aminotransferase 65 U/L (10-49); Albumin, Serum 3.7 gm/dL (3.4-4.8); Albumin/Globulin Ratio 1.3 (1.2-2.2); Alkaline Phosphatase 275 U/L (46-116); Anion Gap 11 (7-16); Aspartate Amino Transferase 69 U/L (0-34); BUN/Creatinine Ratio 20 Ratio (12-20); Bilirubin,Total 0.6 mg/dL (0.3-1.2); Blood Urea Nitrogen 39 mg/dL (9-23); Calcium 9.3 mg/dL (8.3-10.6); Calcium (Corrected) 9.5 mg/dL (8.5-10.1); Carbon Dioxide 19.8 mMol/L (20.0-31.0); Chloride 104 mMol/L (98-107); Estimated Creatinine Clearance 37.5 mL/min (>60); Globulin 2.9 gm/dL (2.3-3.5); Glucose 98 mg/dL (74-106); Magnesium 1.8 mg/dL (1.6-2.6); Osmolality,Calculated 279 (275-295); Phosphorous 3.6 mg/dL (2.4-5.1); Potassium 4.5 mMol/L (3.4-5.1); Sodium 135 mMol/L (136-145); Total Protein 6.6 gm/dL (5.7-8.2); eGFR 36 See Note
--- NOTE | 2024-07-05 08:04 | ESPR_ITS ---
Documentation for date of: 07/05/24 Subjective Subjective Interval history: 68-year-old male patient with past medical history of hypertension, prostatic cancer status post robotic assisted radical prostatectomy in June 10, came to the hospital due to 3 days history of right loin abdominal pain, nausea, vomiting, diarrhea associated with generalized weakness. Patient was admitted for treatment of sepsis secondary to pyelonephritis/gastroenteritis nephrology team was consulted for KEELEY. Patient was seen and examined at bedside. Denied any new symptoms, vital stable, Hemoglobin stable at 9.1, WBC 9, sodium 133 potassium 4.7 carbon dioxide is improving 18.5 non-anion gap, serum creatinine 2.6 down trended from 3.2 yesterday. Other electrolytes within normal limits. He is still on 70 mL of fluids per hour will finish by the 6 PM today. 07/05/2024 patient currently seen medical floor. Resting comfortably. Denies any chest pain, shortness of breath. His abdominal pain and flank pain seems to be better. Still having some low back pain. Labs/medications reviewed. Review of Systems Review of Systems Narrative Review of Systems: CONSTITUTIONAL: Patient denies any fever, chills. HEENT: Denies any visual disturbances or hearing problems. CARDIOVASCULAR: Patient denies any chest pain, shortness of breath, swelling in the lower extremities. PULMONARY: Patient denies any shortness of breath, cough. GASTROINTESTINAL: Patient denies any abdominal pain, constipation, nausea, vomiting, diarrhea. GENITOURINARY: Patient denies any urinary symptoms of burning or frequency or hematuria, denies any form in the urine. Flank pain better SKIN: Denies any rash. MUSCULOSKELETAL: complaining of low back pain NEUROLOGICAL: Denies any neurological problems of strokes, seizures or confusion. Denies any memory problems. PSYCHIATRIC: Denies any depression or anxiety. LYMPHATICS : No lymphadenopathy Exam Vital Signs Temp Pulse Resp BP Pulse Ox O2 Del Method 36.5 C 85 17 139/83 H 96 Room Air 07/05/24 04:00 07/05/24 04:04 07/05/24 04:00 07/05/24 04:00 07/05/24 04:00 07/05/24 04:00 Narrative Exam GENERAL APPEARANCE: Patient seems to be comfortable, adequately hydrated and nourished. HEENT: EOMI, PERRLA NECK: Neck supple, no JVD or bruit CARDIOVASCULAR: Heart regular, no murmurs LUNGS/CHEST: Chest clear to auscultation. No rales, rhonchi, wheezing ABDOMEN: Soft, nontender, nondistended. No masses. Normal bowel sounds. EXTREMITIES: No edema, clubbing or cyanosis. SKIN: Skin exam normal without any rashes MUSCULOSKELETAL: Musculoskeletal exam normal PSYCHIATRIC: Normal mood, affect LYMPHATICS: No lymphadenopathy noted NEUROLOGICAL : No neurological deficits Objective Labs 07/05/24 05:35 07/05/24 05:35 Labs: Laboratory Results - last 24 hr 07/05/24 05:35 WBC 10.2 RBC 3.53 L Hgb 10.6 L Hct 31.4 L MCV 89 MCH 30.0 MCHC 33.8 RDW Std Deviation 45.4 H Plt Count 345 D Neut % (Auto) 66 Lymph % (Auto) 14 [place] % (Auto) 13 H Eos % (Auto) 3 Baso % (Auto) 0 Neut # (Auto) 6.7 Lymph # (Auto) 1.4 [place] # (Auto) 1.3 H Eos # (Auto) 0.3 Baso # (Auto) 0.0 Immature Gran # (Auto) 0.34 H Absolute Nucleated RBC 0.00 Immature Gran % 3 H Nucleated RBC % 0 Sodium 135 L Potassium 4.5 Chloride 104 Carbon Dioxide 19.8 L Anion Gap 11 BUN 39 H Creatinine 2.0 H D Estim Creat Clear Calc 37.5 L eGFR 36 L BUN/Creatinine Ratio 20 Glucose 98 Calculated Osmolality 279 Calcium 9.3 Corrected Calcium 9.5 Phosphorus 3.6 Magnesium 1.8 Total Bilirubin 0.6 AST 69 H ALT 65 H Alkaline Phosphatase 275 H D Total Protein 6.6 Albumin 3.7 Globulin 2.9 Albumin/Globulin Ratio 1.3 Assessment & Plan Additional Assessment & Plan Additional Plan: 68-year-old male patient with past medical history of hypertension, prostatic cancer status post robotic assisted radical prostatectomy in June 10, came to the hospital due to 3 days history of right loin abdominal pain, nausea, vomiting, diarrhea associated with generalized weakness. Patient was admitted for treatment of sepsis secondary to pyelonephritis/gastroenteritis nephrology team was consulted for KEELEY. Assessment and plan #KEELEY most likely prerenal secondary to dehydration versus renal secondary to sepsis #Hypokalemia #Hypophosphatemia #Hypomagnesemia On presentation patient was septic with pulse rate of 92, WBCs of 13, urine analysis was positive for more than 1000 WBC positive leukoesterase, lactic acid was found to be 3.2 on admission, dehydrated. CT scan was negative for any obstructive lesion or stones. Patient denied any urinary retention His serum creatinine found to be 4.5 on admission, however, 2 months ago his serum creatinine was 0.9. BUN was found to be 57. Today 07/03/2024 his labs showed potassium level of 3.3, bicarb 16.9, anion gap normal, BUN 52, serum creatinine 3.2 magnesium 1.5, phosphate 2.2. Creatinine seems to be improving. Plan ? Serum creatinine continue to improve patient seems to be dehydrated ? Continue patient on IV fluids 70 mL/h ? Replete electrolytes as needed ? Hold home medications for blood pressure losartan ? Decrease hydroxyzine 50% of his usual dose to 12.5 daily ? Avoid nephrotoxic medications ? Strict in and out
[2024-07-05] MEDS: PANTOPRAZOLE 40 MG TABLET PO (09:19)
[2024-07-05] MEDS: gemfibroziL 600 MG TABLET PO (09:19)
[2024-07-05] MEDS: TAMSULOSIN HCL 0.4 MG CAPSULE PO (09:19)
[2024-07-05] MEDS: HEPARIN SOD INJ 5000 UNIT/ML VIAL SC (09:19)
--- NOTE | 2024-07-05 14:22 | PD.RESPRO ---
Documentation for date of: 07/05/24 Subjective Subjective Interval history: Patient seen today at the bedside fine awake, alert, oriented x 3. No overnight events reported. States flank pain has improved. No fever in the last 48 hours. Labs significant for improving kidney function. Currently on levofloxacin 750 mg every 48 hours renally dosed considering KEELEY. GI specialist Dr. Villalba recommended endoscopy and colonoscopy to evaluate the patient's supposedly bloody stools, however patient has history of hemorrhoids. Spoke to GI recommended endoscopy and colonoscopy can be done as outpatient. Anticipate discharge in next 24 to 48 hours. Exam Vital Signs Temp Pulse Resp BP Pulse Ox O2 Del Method 98.1 F 88 16 137/85 H 97 Room Air 07/05/24 08:00 07/05/24 12:00 07/05/24 08:00 07/05/24 08:00 07/05/24 08:00 07/05/24 08:00 Narrative Exam Physical Exam GENERAL: NAD, AAOx3 HEENT: Moist mucosa. Eyes open, symmetrical, & clear CARDIO: Heart RRR, no obvious murmurs PULM: No noted coughing/dyspnea CTA B/L, no R/W/R GI: Abdomen soft, nondistended, no pain on palpation. BSx4 SKIN/MSK/EXT: No wounds/rashes/edema/amputations, no pain on palpation. Right flank pain pedal pulses present B/L NEURO: AAOx3, no focal neuro deficits, able to move all 4 extremities Objective Labs 07/05/24 05:35 07/05/24 05:35 Labs: Laboratory Results - last 24 hr 07/05/24 05:35 WBC 10.2 RBC 3.53 L Hgb 10.6 L Hct 31.4 L MCV 89 MCH 30.0 MCHC 33.8 RDW Std Deviation 45.4 H Plt Count 345 D Neut % (Auto) 66 Lymph % (Auto) 14 [place] % (Auto) 13 H Eos % (Auto) 3 Baso % (Auto) 0 Neut # (Auto) 6.7 Lymph # (Auto) 1.4 [place] # (Auto) 1.3 H Eos # (Auto) 0.3 Baso # (Auto) 0.0 Immature Gran # (Auto) 0.34 H Absolute Nucleated RBC 0.00 Immature Gran % 3 H Nucleated RBC % 0 Sodium 135 L Potassium 4.5 Chloride 104 Carbon Dioxide 19.8 L Anion Gap 11 BUN 39 H Creatinine 2.0 H D Estim Creat Clear Calc 37.5 L eGFR 36 L BUN/Creatinine Ratio 20 Glucose 98 Calculated Osmolality 279 Calcium 9.3 Corrected Calcium 9.5 Phosphorus 3.6 Magnesium 1.8 Total Bilirubin 0.6 AST 69 H ALT 65 H Alkaline Phosphatase 275 H D Total Protein 6.6 Albumin 3.7 Globulin 2.9 Albumin/Globulin Ratio 1.3 Quality Measures Quality Measures sepsis Current suspected stage: sepsis Possible source: GI tract/intra-abdominal Blood cultures ordered: completed in ED Antibiotic ordered: Yes Advance care planning discussed with:: patient Assessment & Plan Assessment Current Active Medications: Generic Name Dose Route Start Last Admin Trade Name Freq PRN Reason Stop Dose Admin Acetaminophen 1,000 mg 07/03/24 00:39 07/04/24 23:42 Acetaminophen 500 Mg Tablet PO 08/02/24 00:38 1,000 mg Q6H PRN Administration Fever >100.3 or Pain 1-3 Docusate Sodium 100 mg 07/02/24 09:00 07/05/24 09:19 Docusate Sod 100 Mg Capsule PO 08/01/24 08:59 Not Given QDAY SASHA Protocol Gemfibrozil 600 mg 07/02/24 09:00 07/05/24 09:19 Gemfibrozil 600 Mg Tablet PO 08/01/24 08:59 600 mg BID SASHA Administration Guaifenesin 200 mg 07/03/24 17:20 07/03/24 17:48 Guaifenesin Syrup 200 Mg/10 Ml Udc PO 08/02/24 17:29 200 mg TID PRN Administration Cough Protocol Heparin Sodium (Porcine) 5,000 unit 07/01/24 21:00 07/05/24 09:19 Heparin Sod Inj 5000 Unit/Ml Vial SC 07/15/24 20:59 5,000 unit Q12HR SASHA Administration Hydroxyzine HCl 12.5 mg 07/03/24 21:00 07/04/24 20:42 Hydroxyzine Hcl 25 Mg Tablet PO 08/02/24 20:59 12.5 mg HS SASHA Administration Levofloxacin 750 mg 07/04/24 10:45 07/04/24 11:45 Levofloxacin 250 Mg Tablet PO 07/11/24 10:44 750 mg Q48H SASHA Administration Ondansetron HCl 4 mg 07/01/24 14:55 Ondansetron Inj 2 Mg/Ml Inj 2 Ml IV 07/31/24 14:54 Q6H PRN NAUSEA OR VOMITING Protocol Pantoprazole Sodium 40 mg 07/04/24 09:00 07/05/24 09:19 Pantoprazole 40 Mg Tablet PO 08/03/24 08:59 40 mg QDAY SASHA Administration Tamsulosin HCl 0.4 mg 07/01/24 16:00 07/05/24 09:19 Tamsulosin Hcl 0.4 Mg Capsule PO 07/31/24 15:59 0.4 mg QDAY SASHA Administration Zolpidem Tartrate 5 mg 07/05/24 21:00 Zolpidem 5 Mg Tablet PO 07/05/24 21:01 X1 ONE Plan 68-year-old male with past medical history of prostate CA, s/p robotic-assisted radical prostatectomy at [facility] on 05/20/2024, hypertension, presents to the ED for evaluation of generalized weakness beginning 3 days ago. Patient states having nonbloody watery diarrhea for the past few days. Patient also states having nausea and vomiting as well as right flank pain. Admitted for acute gastroenteritis and KEELEY. #Acute gastroenteritis #Pyelonephritis #Sepsis #Klebsiella pneumonia bacteremia Patient states having diarrhea for the past 2 days after consuming some suspicious food Patient states having right flank tenderness On med rec patient takes omeprazole On Labs patient has SIRS 2/4 WBCs 13, no fever, no tachycardia, no tachypnea, Lactic acid 3.2, organ dysfunction kidney with KEELEY however repeat lactic acid normalized, procalcitonin >50 currently qSOFA:0, SIRS 1/4, not sepsis UA shows no signs of UTI many WBCs, bacteria CT abdomen pelvis also shows Right perinephric stranding In the ED patient received 2L NS boluses C. difficile negative, Blood cultures grew gram-negative rods 2 out of 2 bottles 07/03/2024 Overnight patient had rapid response with sepsis alert due to tachycardia chills temperature 101.3 sepsis labs were ordered 1 L NS bolus was given antibiotic coverage was broadened to meropenem. Blood cultures negative in 24 hours -on levofloxacin 750 mg every 48 hours - stool cultures pending -ID Dr Rosado consulted, appreciate recommendations #Acute Kidney Injury-improving likely pre-renal in the setting of decreased po intake and dehydration Creatinine on admission 4.5 Baseline Cr 0.9, current creatinine 2.0 -Renally dose medications -Avoid nephrotoxins -Monitor CMP #Normocytic anemia Hemoglobin has been trending down This a.m. 1 episode of bloody stool was reported FOBT was negative -GI Dr. Villalba was consulted, appreciate recommendations -EGD and colonoscopy to be done as outpatient #Troponinemia Likely in the setting of demand ischemia due to underlying infection EKG ordered however not on file, cannot find Troponins 0.058, troponin peaked -No need to trend troponin #Hypokalemia-resolved On admission potassium 2.9 -Replete as necessary -Monitor BMP #Hypertension Patient is normotensive at this time -Consider resuming antihypertensives #Renal cyst, right 13 cm #History of prostate cancer CT abdomen pelvis shows: Large right parapelvic cyst, 13 cm versus congenital ureteropelvic junction obstruction -Urology, Dr. Dexter was consulted, appreciate recommendations -Resume Flomax as taken at home Case discussed with my attending Dr. Mimi Duarte MD PGY-1 Disposition: Medtele Fluids: None Feeding: Regular Thrombo prophylaxis: Heparin Gastric Ulcer prophylaxis: None CODE STATUS: Full code Attending Provider Attestation/Addendum Rose Ulloa, , attest that I was physically present for the hall portions of the service and evaluated the patient with the resident and I reviewed and discussed the case with the resident and agree with the resident's findings and plans of care as documented above Patient seen and evaluated this AM. Patient is tearful and states he does not feel ready to go home as he is very weak. He also states he has been unable to sleep for several days. He was prescribed hydroxyzine by his PCP and states that it did not work. He reports pain in his right flank has improved. Patient denies any further episodes of blood in stool, suspect hemorrhoids. Renal function improving. Will continue with IV fluids and anticipate DC within next 24hrs
--- NOTE | 2024-07-05 15:36 | ESPR_ITS ---
Documentation for date of: 07/05/24 Subjective Subjective Interval history: Patient evaluated Hemoglobin hematocrit 10.6 and 31.4 Iron saturation is only 4% Will start on p.o. iron along with vitamin C Case discussed with the internal medicine team will need outpatient upper endoscopy and colonoscopy for unexplained iron deficiency anemia If for some reason hospital stay is prolonged I can do both the procedure and hospital Exam Vital Signs Temp Pulse Resp BP Pulse Ox O2 Del Method 98.1 F 88 16 137/85 H 97 Room Air 07/05/24 08:00 07/05/24 12:00 07/05/24 08:00 07/05/24 08:00 07/05/24 08:00 07/05/24 08:00 Constitutional Comments: Alert active oriented Routine Respiratory Exam Comments: Normal to auscultation Routine Abdominal Exam Comments: Soft nontender Objective Labs 07/05/24 05:35 07/05/24 05:35 Labs: Laboratory Results - last 24 hr 07/05/24 05:35 WBC 10.2 RBC 3.53 L Hgb 10.6 L Hct 31.4 L MCV 89 MCH 30.0 MCHC 33.8 RDW Std Deviation 45.4 H Plt Count 345 D Neut % (Auto) 66 Lymph % (Auto) 14 [place] % (Auto) 13 H Eos % (Auto) 3 Baso % (Auto) 0 Neut # (Auto) 6.7 Lymph # (Auto) 1.4 [place] # (Auto) 1.3 H Eos # (Auto) 0.3 Baso # (Auto) 0.0 Immature Gran # (Auto) 0.34 H Absolute Nucleated RBC 0.00 Immature Gran % 3 H Nucleated RBC % 0 Sodium 135 L Potassium 4.5 Chloride 104 Carbon Dioxide 19.8 L Anion Gap 11 BUN 39 H Creatinine 2.0 H D Estim Creat Clear Calc 37.5 L eGFR 36 L BUN/Creatinine Ratio 20 Glucose 98 Calculated Osmolality 279 Calcium 9.3 Corrected Calcium 9.5 Phosphorus 3.6 Magnesium 1.8 Total Bilirubin 0.6 AST 69 H ALT 65 H Alkaline Phosphatase 275 H D Total Protein 6.6 Albumin 3.7 Globulin 2.9 Albumin/Globulin Ratio 1.3 Impressions Impression: # Unexplained iron deficiency anemia # Improved nausea vomiting # Improved diarrhea Continue current management Assessment & Plan A&P Narrative bacteremia, likely from urine uti, see ua htn hld changed merrem to po keflex and adjusted for alecia, ok to adjust further if renal status improves more with time will check in again on Sunday, ok to change if germ in bc is different, but so far that does not seem to be the case. empiric merrem use noted. Time Spent With Patient Time: Total time spent is greater than 50% in coordination of care (as documented) at patient's floor/unit and/or counseling patient:
[2024-07-05] MEDS: FERROUS SULF 325 MG TABLET PO (15:59)
--- NOTE | 2024-07-05 17:16 | ESDS_ITS ---
<Statement entered by Rose Le DO - 07/06/24 08:10> I, Rose Le DO, attest that I was physically present for the hall portions of the service and evaluated the patient with the resident and I reviewed and discussed the case with the resident and agree with the resident's findings and plans of care as documented above Planned Discharge Date 07/05/24 DS: Providers Provider Date of admission: 07/01/24 14:55 Primary care physician: Bernadette Sierra MD Admitting Provider: Jorge Luis Weiner MD Attending Provider on Admission: Rose Le DO Consults: 07/01/24 18:27 Referral Registered Dietitian Routine Comment: Instructions: poor intake for a week, 5lb weight loss per pt 07/03/24 00:33 Consult to Infectious Diseases Routine Comment: Consulting Provider: Giovani Rosado 07/03/24 08:32 Consult to Nephrology Stat Comment: Consulting Provider: Dale Villatoro 07/03/24 11:06 Consult to Gastroenterology Stat Comment: Consulting Provider: Abel Villalba 07/03/24 12:49 Consult to Urology Routine Comment: pyelo, right renal abnormality Consulting Provider: Samantha Dexter Attending Provider on DC: Rose Le DO Discharging Provider: Raulito Duarte MD Anticipated date of discharge: 07/05/24 DS: Diagnosis Problem List Completed Was Problem List Reviewed/Reconciled?: Yes Hospital Course Hospital Course Hospital course: 68-year-old male with past medical history of prostate CA, s/p robotic-assisted radical prostatectomy at [facility] on 05/20/2024, hypertension, presents to the ED for evaluation of generalized weakness beginning 3 days ago. Patient states having nonbloody watery diarrhea for the past few days. Patient also states having nausea and vomiting as well as right flank pain. Admitted for acute gastroenteritis and KEELEY. During Hospital stay patients sepsis secondary to pyelonephritis and gastroenteritis were managed with IV fluid boluses part of sepsis work up as well as IV antibiotics. Patient was found to have bacteremia with organism being klebsiella pneumonia for which antibiotics were narrowed based on culture and sensitivity. Patient presented on admission with diarrhea and considering his hx of PPI use was tested for C.Dif which was found to be negative. Patient did have 1 episode of bloody stool for which GI specialist, Dr. Villalba was consulted recommended outpatient EGD and colonoscopy. IV antibiotics were switched to oral route and dose was adjusted based on renal function. For patients acute kidney injury was managed with IV fluids. Patients anemia was monitored and upon discharge will be prescribed iron tablets. Electrolyte abnormalities were monitored and repleted as needed. Patient was found to have renal cyst on CT scan which is a chronic issue stated by patient. Urology was consulted and recommended outpatient follow up. At this time is medically stable for discharge. Recommend continuing the antibiotic , levofloxacin 7 mg every other day through July 10. Recommend discontinuing losartan for now due to acute kidney injury, please follow-up with your primary care physician within 3 to 5 days discharge, you may require repeat set of labs renal panel before restarting losartan. Please follow-up with urologist Dr. Dexter within 1 to 2 weeks of discharge from hospital. Follow up with Primary care physician with labs within 3-5 days of discharge. If symptoms persist or worsen, return to the Emergency Department. Problem List: #Acute gastroenteritis #Pyelonephritis #Sepsis-resolved #Klebsiella pneumonia bacteremia #Acute Kidney Injury-improving #Normocytic anemia #Troponinemia #Hypokalemia-resolved #Hypertension #Renal cyst, right 13 cm #History of prostate cancer Case discussed with my attending Dr. Mimi Duarte MD PGY-1 Status at Discharge Functional status at discharge: independent ambulation Overall status at discharge: patient is back to baseline Time Spent with Patient Time attestation: Total time spent providing and/or coordinating discharge services: Time spent: Greater than 30 minutes Exam Vital Signs Temp Pulse Resp BP Pulse Ox O2 Del Method 97.1 F 91 16 118/80 95 Room Air 07/05/24 12:00 07/05/24 16:00 07/05/24 12:00 07/05/24 12:00 07/05/24 12:07/05/24 12:00 Narrative Exam Physical Exam GENERAL: NAD, AAOx3 HEENT: Moist mucosa. Eyes open, symmetrical, & clear CARDIO: Heart RRR, no obvious murmurs PULM: No noted coughing/dyspnea CTA B/L, no R/W/R GI: Abdomen soft, nondistended, no pain on palpation. BSx4 SKIN/MSK/EXT: No wounds/rashes/edema/amputations, no pain on palpation. Pedal pulses present B/L NEURO: AAOx3, no focal neuro deficits, able to move all 4 extremities Discharge Plan Plan Patient Disposition: HOME (Self Care) Disposition Comment: Dr. Weiner Care Plan Goals: Recommend continuing the antibiotic , levofloxacin 7 mg every other day through July 10. Recommend discontinuing losartan for now due to acute kidney injury, please follow-up with your primary care physician within 3 to 5 days discharge, you may require repeat set of labs renal panel before restarting losartan. Please follow-up with urologist Dr. Dexter within 1 to 2 weeks of discharge from hospital. Follow up with Primary care physician with labs within 3-5 days of discharge. If symptoms persist or worsen, return to the Emergency Department. Prescriptions/Referrals Prescriptions/Med Rec: New levofloxacin 750 mg tablet 750 mg PO Q48H 5 Days Qty: 3 0RF tamsulosin 0.4 mg Capsule 0.4 mg PO QDAY 30 Days Qty: 30 0RF ferrous sulfate 325 mg (65 mg iron) Tablet,Delayed Release (Dr/Ec) 325 mg PO QOD 30 Days Qty: 15 0RF Continued omeprazole 40 mg Capsule,Delayed Release(Dr/Ec) 40 mg PO QPM simvastatin 20 mg Tablet 20 mg PO QPM hydroxyzine HCl 25 mg tablet 25 mg PO HS Discontinued losartan 25 mg tablet 25 mg PO QPM Referrals: Samantha Dexter MD [Physician] - Bernadette Sierra MD [Primary Care Provider] - Patient/Caregiver Discharge Instructions Print Language: Korean Stand Alone Forms: [facility]ah Award Info., Patient Portal Info Letter Discharge Order Discharge Orders: Discharge (Routine); Ordered 07/05/24 Ordered By: Raulito Duarte Quality Discharge Quality Measures VTE prophylaxis
--- NOTE | 2024-07-07 13:37 | ESCONSULT_ITS ---
RE: PILI HARRISON : 1955 DATE OF CONSULTATION: 07/04/2024 CHIEF COMPLAINT: 1. Urosepsis. 2. Prostate cancer, status post robot assisted radical prostatectomy and bilateral pelvic lymph node dissections done at [facility] by Dr. Garcia on 05/20/2024. COMORBID CONDITION: Hypertension. HISTORY OF PRESENT ILLNESS: This is a 68-year-old gentleman. This patient presented to the emergency room with the history of generalized weakness and watery diarrhea of few days duration. The patient also has a nausea, vomiting, and right flank pain and decreased appetite and decreased intake of fluid. He had no fever, chills, chest pain, shortness of breath, or abdominal pain. The patient was admitted in the hospital with the diagnosis of acute gastroenteritis and acute kidney injury. 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 In the emergency room, the patient has significant leukocytosis, hemoglobin of 11, potassium of 2.9, BUN 57, creatinine is 4.5, glucose is 150. CAT scan was done. It was reviewed by me. He has a very large parapelvic cyst. There was no hydronephrosis identified. The patient also had a MAG-3 renal scan with Lasix done. I have not seen the report of MAG-3 renal scan yet. Past medical history, family history, review of the systems, personal history, please refer to the patient's history form dated, 07/01/2024. It is in HPI, in EMR. On examination, my nurse, Ying was present with me. PHYSICAL EXAMINATION: VITAL SIGNS: Stable. They are in the HPI, in EMR. GENERAL: Condition is satisfactory. Orientation x3. HEENT: Normocephalic, atraumatic. Eyes: No anemia or jaundice. NECK: Supple. Trachea is central. Thyroid is not enlarged. CHEST: Symmetrical. HEART: Regular rate and rhythm. ABDOMEN: Soft and nontender. No masses. Liver, spleen, kidney not palpable. No CVA tenderness. EXTREMITIES: Revealed no edema, cyanosis, or clubbing. VARIOUS LABS: His labs today, BUN is 43, creatinine 2.6, WBC is 9.9, hemoglobin 9.1. Urine culture and blood culture revealed Klebsiella. The patient is on antibiotics for the same. Bladder scan was done, his residual urine is 71 mL. IMPRESSION: 1. Sepsis. 2. Acute kidney injury. 3. Hypokalemia. 4. Hypertension. 5. Prostate cancer. 6. Right renal cyst. RECOMMENDATIONS: Continue with medical management. Follow-up appointment in urology office. All above issues were discussed with the patient in detail. Questions were answered to the patient's satisfaction. The patient verbalized understanding. DT: 16:13:47 TT: 23:24:00 Ref: [id number] - TID: [id number] MTDD
== END 2024-07-05 18:10 | disposition home or self-care (01) | DRG 872 ==
LOC: SERX 15:08 → SERHOLD 15:21 → S3NX 18:06
PROVIDERS: Specialist; Student in an Organized Health Care Education/Training Program; Admitting Provider Student in an Organized Health Care Education/Training Program; Emergency Provider Emergency Medicine; PCP Family Medicine; Visit Provider Internal Medicine
DX: A41.59 Other Gram-negative sepsis (principal); N10 Acute pyelonephritis; I24.89 Other forms of acute ischemic heart disease; N17.9 Acute kidney failure, unspecified; E87.20 Acidosis, unspecified; K52.9 Noninfective gastroenteritis and colitis, unspecified; E86.0 Dehydration; E87.6 Hypokalemia; N28.1 Cyst of kidney, acquired; I10 Essential (primary) hypertension; D50.9 Iron deficiency anemia, unspecified; E78.5 Hyperlipidemia, unspecified; N40.1 Benign prostatic hyperplasia with lower urinary tract symptoms; N39.498 Other specified urinary incontinence; E83.42 Hypomagnesemia; E83.39 Other disorders of phosphorus metabolism; Z85.46 Personal history of malignant neoplasm of prostate
CPT/HCPCS: 36415; 74022; 74176; 80053; 80061; 81001; 82270; 82607; 82746; 83540; 83550; 83605; 83690; 83735; 83880; 84100; 84145; 84443; 84484; 85025; 85610; 85730; 87015; 87040; 87045; 87046; 87077; 87086; 87186; 87493; 87899; 93005; 93225; 96365; 96367; 99291; J0696; J1643; J2185; J2543; J3475; J3480; J7030; J7050; J7120; A9270

== ENCOUNTER → 2024-07-09 | Outpatient (CLI) | payer OTHER, SELFPAY ==
[2024-07-09 10:27] LABS: Basophils # (Auto) 0.1 Thou/mm3 (0.0-0.2); Basophils % (Auto) 0 % (0-2.5); Eosinophils # (Auto) 0.1 Thou/mm3 (0.0-0.5); Eosinophils % (Auto) 1 % (0-10); Hematocrit 28.8 % (41.0-53.0); Hemoglobin 9.6 g/dL (13.5-16.0); Immature Granulocytes % (Auto) 5 % (0-0); Immature Granulocytes Auto 0.54 Thou/mm3 (0.00-0.00); Lymphocytes # (Auto) 0.9 Thou/mm3 (1.0-4.8); Lymphocytes % (Auto) 8 % (10-50); Mean Corpuscular HGB Conc 33.3 g/dl (31.0-37.0); Mean Corpuscular Hemoglobin 30.2 pg (25.0-35.0); Mean Corpuscular Volume 91 fL (80-100); Monocytes # (Auto) 1.1 Thou/mm3 (0.0-0.8); Monocytes % (Auto) 10 % (0-12); Neutrophils % (Auto) 77 % (37-80); Nucleated Red Blood Cell % 0 /100 WBC (0); Platelet Count 776 Thou/mm3 (140-440); Red Blood Count 3.18 Miln/mm3 (4.50-5.90); White Blood Count 11.6 Thou/mm3 (3.8-10.6)
[2024-07-09 10:53] LABS: Anion Gap 9 (7-16); BUN/Creatinine Ratio 14 Ratio (12-20); Blood Urea Nitrogen 25 mg/dL (9-23); Calcium 9.3 mg/dL (8.3-10.6); Carbon Dioxide 23.2 mMol/L (20.0-31.0); Chloride 101 mMol/L (98-107); Creatinine (Component) 1.8 mg/dL (0.6-1.3); Glucose 102 mg/dL (74-106); Osmolality,Calculated 270 (275-295); Potassium 5.1 mMol/L (3.4-5.1); Sodium 133 mMol/L (136-145); eGFR 41 See Note
[2024-07-09 10:58] LABS: Vitamin B12 1082 pg/mL (211-911)
[2024-07-09 11:17] LABS: Band Neutrophils (Manual) 5 % (0-6); Eosinophils (Manual) 2 % (0-4); Lymphocytes (Manual) 9 % (20-44); Metamyelocytes (Manual) 1 % (0-0); Monocytes (Manual) 8 % (2-9); Myelocytes (Manual) 2 % (0-0); Neutrophils (Manual) 73 % (50-70)
[2024-07-09 12:12] LABS: Total Iron Binding Capacity 252 mcg/dL (250-425)
[2024-07-09 12:22] LABS: Iron 23 mcg/dL (65-175)
== END | disposition home or self-care (01) ==
LOC: COPL 08:57
PROVIDERS: PCP Family Medicine; Referring Provider Family Medicine; Visit Provider Family Medicine
DX: N17.9 Acute kidney failure, unspecified (principal); D64.9 Anemia, unspecified
CPT/HCPCS: 36415; 80048; 82607; 83540; 83550; 85025

== ENCOUNTER → 2024-07-28 | Outpatient (CLI) | payer OTHER, SELFPAY ==
[2024-07-28 08:42] LABS: Collection Type, Urine Clean Catch; Squamous Epithelial Cell,Urine 0 /hpf (0-5)
[2024-07-28 09:35] LABS: Basophils # (Auto) 0.1 Thou/mm3 (0.0-0.2); Basophils % (Auto) 1 % (0-2.5); Eosinophils # (Auto) 0.3 Thou/mm3 (0.0-0.5); Eosinophils % (Auto) 3 % (0-10); Hematocrit 26.4 % (41.0-53.0); Immature Granulocytes % (Auto) 1 % (0-0); Immature Granulocytes Auto 0.04 Thou/mm3 (0.00-0.00); Lymphocytes # (Auto) 1.4 Thou/mm3 (1.0-4.8); Lymphocytes % (Auto) 17 % (10-50); Mean Corpuscular HGB Conc 31.8 g/dl (31.0-37.0); Mean Corpuscular Hemoglobin 29.7 pg (25.0-35.0); Mean Corpuscular Volume 93 fL (80-100); Monocytes % (Auto) 12 % (0-12); Neutrophils # (Auto) 5.7 Thou/mm3 (1.8-7.7); Neutrophils % (Auto) 68 % (37-80); Nucleated Red Blood Cell % 0 /100 WBC (0); Platelet Count 584 Thou/mm3 (140-440); RDW Standard Deviation 46.3 fL (35.1-43.9); Red Blood Count 2.83 Miln/mm3 (4.50-5.90); White Blood Count 8.3 Thou/mm3 (3.8-10.6)
[2024-07-28 09:42] LABS: Bilirubin,Urine Negative (Negative); Blood,Urine Trace (Negative); Clarity,Urine Clear (Clear/Hazy); Color,Urine Lt-Yellow (Lt Yel-Yel); Glucose, Urine Negative (Negative); Ketones,Urine Negative (Negative); Leukocyte Esterase,Urine Negative (Negative); Nitrite,Urine Negative (Negative); Protein,Urine 1+ (Neg - Trace); RBC,Urine 5 /hpf (0-3); Specific Gravity,Urine 1.021 (1.001-1.035); Urobilinogen,Urine Negative mg/dL (0.0-1.0); WBC,Urine 2 /hpf (0-5)
[2024-07-28 09:48] LABS: Alanine Aminotransferase 22 U/L (10-49); Albumin, Serum 3.9 gm/dL (3.4-4.8); Albumin/Globulin Ratio 1.2 (1.2-2.2); Alkaline Phosphatase 127 U/L (46-116); Anion Gap 7 (7-16); Aspartate Amino Transferase 23 U/L (0-34); BUN/Creatinine Ratio 13 Ratio (12-20); Bilirubin,Total 0.3 mg/dL (0.3-1.2); Blood Urea Nitrogen 20 mg/dL (9-23); Calcium 9.8 mg/dL (8.3-10.6); Calcium (Corrected) 9.9 mg/dL (8.5-10.1); Carbon Dioxide 25.7 mMol/L (20.0-31.0); Chloride 106 mMol/L (98-107); Creatinine (Component) 1.5 mg/dL (0.6-1.3); Globulin 3.3 gm/dL (2.3-3.5); Glucose 97 mg/dL (74-106); Osmolality,Calculated 280 (275-295); Potassium 4.8 mMol/L (3.4-5.1); Sodium 139 mMol/L (136-145); Total Protein 7.2 gm/dL (5.7-8.2); eGFR 51 See Note
[2024-07-28 09:53] LABS: Hemoglobin 8.4 g/dL (13.5-16.0)
== END | disposition home or self-care (01) ==
LOC: COPL 07:56
PROVIDERS: PCP Family Medicine; Referring Provider Family Medicine; Visit Provider Family Medicine
DX: D64.9 Anemia, unspecified (principal); N17.9 Acute kidney failure, unspecified
CPT/HCPCS: 36415; 80053; 81001; 85025; 87086

== ENCOUNTER → 2024-08-22 | Outpatient (CLI) | payer OTHER, SELFPAY ==
[2024-08-22 08:38] LABS: Anion Gap 10 (7-16); BUN/Creatinine Ratio 14 Ratio (12-20); Blood Urea Nitrogen 18 mg/dL (9-23); Carbon Dioxide 26.1 mMol/L (20.0-31.0); Chloride 108 mMol/L (98-107); Creatinine (Component) 1.3 mg/dL (0.6-1.3); Glucose 92 mg/dL (74-106); Osmolality,Calculated 288 (275-295); Potassium 4.8 mMol/L (3.4-5.1); Sodium 144 mMol/L (136-145); eGFR > 60 See Note
[2024-08-22 08:40] LABS: Basophils # (Auto) 0.1 Thou/mm3 (0.0-0.2); Basophils % (Auto) 1 % (0-2.5); Eosinophils # (Auto) 0.5 Thou/mm3 (0.0-0.5); Eosinophils % (Auto) 8 % (0-10); Hematocrit 31.2 % (41.0-53.0); Hemoglobin 10.2 g/dL (13.5-16.0); Immature Granulocytes % (Auto) 0 % (0-0); Immature Granulocytes Auto 0.02 Thou/mm3 (0.00-0.00); Lymphocytes # (Auto) 1.4 Thou/mm3 (1.0-4.8); Lymphocytes % (Auto) 24 % (10-50); Mean Corpuscular HGB Conc 32.7 g/dl (31.0-37.0); Mean Corpuscular Hemoglobin 29.9 pg (25.0-35.0); Mean Corpuscular Volume 92 fL (80-100); Monocytes # (Auto) 0.8 Thou/mm3 (0.0-0.8); Monocytes % (Auto) 14 % (0-12); Neutrophils # (Auto) 3.1 Thou/mm3 (1.8-7.7); Neutrophils % (Auto) 52 % (37-80); Nucleated Red Blood Cell % 0 /100 WBC (0); Platelet Count 383 Thou/mm3 (140-440); RDW Standard Deviation 48.9 fL (35.1-43.9); Red Blood Count 3.41 Miln/mm3 (4.50-5.90); White Blood Count 5.9 Thou/mm3 (3.8-10.6)
[2024-08-22 08:43] LABS: Prostate Specific Antigen < 0.10 ng/mL (0-4.00)
== END | disposition home or self-care (01) ==
LOC: COPL 07:36
PROVIDERS: PCP Family Medicine; Referring Provider Family Medicine; Visit Provider Urology
DX: C61 Malignant neoplasm of prostate (principal); N18.31 Chronic kidney disease, stage 3a; D63.1 Anemia in chronic kidney disease
CPT/HCPCS: 36415; 80048; 84153; 85025

== ENCOUNTER → 2024-09-01 | Outpatient (BNVA) | payer OTHER, SELFPAY | END | disposition home or self-care (01) | PROVIDERS: PCP Family Medicine; Referring Provider Family Medicine; Visit Provider Urology | DX: C61 Malignant neoplasm of prostate (principal); Z90.79 Acquired absence of other genital organ(s); I10 Essential (primary) hypertension; N39.3 Stress incontinence (female) (male); N28.89 Other specified disorders of kidney and ureter; E78.00 Pure hypercholesterolemia, unspecified; K21.9 Gastro-esophageal reflux disease without esophagitis | CPT/HCPCS: 81003; 99212; G0463 ==

== ENCOUNTER 2024-09-12 09:05 | Day surgery (SDC) | payer OTHER, SELFPAY ==
[2024-09-11 12:17] VITALS: BMI 23.1
[2024-09-12] VITALS (12 sets, daily range): BP systolic 131–184; BP diastolic 79–104; PULSE 67–97; RESP 12–20; TEMP 36.2–37; O2SAT 93–100; BMI 22.6
[2024-09-12] MEDS: SODIUM CHLORIDE 0.9% 500 ML 500 ML 20 ML IV (10:57)
[2024-09-12] MEDS: DiphenhydrAMINE INJ 50 MG/ML VIAL 25 MG IV (11:15)
[2024-09-12] MEDS: LIDOCAINE JELLY 2% (Urojet) 10 ML TUBE TOP (11:16)
[2024-09-12] MEDS: MIDAZOLAM INJ 1 MG/ML VIAL 2 ML (ASD USE ONLY) 2 MG IV (11:17)
[2024-09-12] MEDS: fentaNYL CIT INJ 50 mCg/ML AMP 2ML (ASD USE ONLY) IV (11:17)
== END 2024-09-12 12:18 | disposition home or self-care (01) ==
PROVIDERS: PCP Family Medicine; Referring Provider Specialist; Visit Provider Specialist
PROC: 0DBE8ZX Excision of Large Intestine, Via Natural or Artificial Opening Endoscopic, Diagnostic (ICD-10-PCS; CPT 45380; principal; 2024-09-12 10:00)
PROC: (CPT 43239; 2024-09-12 10:00)
DX: D12.2 Benign neoplasm of ascending colon (principal); K64.9 Unspecified hemorrhoids; K57.30 Diverticulosis of large intestine without perforation or abscess without bleeding; K29.50 Unspecified chronic gastritis without bleeding; K44.9 Diaphragmatic hernia without obstruction or gangrene
CPT/HCPCS: 45380; A4649; J1200; J2250; J3010; J7040

== ENCOUNTER → 2024-09-26 | Outpatient (CLI) | payer OTHER, SELFPAY ==
[2024-09-26 08:32] LABS: Basophils % (Auto) 1 % (0-2.5); Eosinophils # (Auto) 0.3 Thou/mm3 (0.0-0.5); Eosinophils % (Auto) 5 % (0-10); Hematocrit 35.8 % (41.0-53.0); Hemoglobin 11.5 g/dL (13.5-16.0); Immature Granulocytes % (Auto) 0 % (0-0); Immature Granulocytes Auto 0.02 Thou/mm3 (0.00-0.00); Lymphocytes # (Auto) 1.6 Thou/mm3 (1.0-4.8); Lymphocytes % (Auto) 28 % (10-50); Mean Corpuscular HGB Conc 32.1 g/dl (31.0-37.0); Mean Corpuscular Hemoglobin 29.1 pg (25.0-35.0); Mean Corpuscular Volume 91 fL (80-100); Monocytes # (Auto) 0.7 Thou/mm3 (0.0-0.8); Monocytes % (Auto) 13 % (0-12); Neutrophils # (Auto) 3.1 Thou/mm3 (1.8-7.7); Neutrophils % (Auto) 54 % (37-80); Nucleated Red Blood Cell % 0 /100 WBC (0); Platelet Count 362 Thou/mm3 (140-440); RDW Standard Deviation 47.5 fL (35.1-43.9); Red Blood Count 3.95 Miln/mm3 (4.50-5.90); White Blood Count 5.7 Thou/mm3 (3.8-10.6)
[2024-09-26 08:44] LABS: Ferritin 50 ng/mL (10.5-307.3); Iron 78 mcg/dL (65-175); Total Iron Binding Capacity 272 mcg/dL (250-425)
== END | disposition home or self-care (01) ==
PROVIDERS: PCP Family Medicine; Referring Provider Family Medicine; Visit Provider Family Medicine
DX: D64.9 Anemia, unspecified (principal)
CPT/HCPCS: 36415; 82728; 83540; 83550; 85025

== ENCOUNTER → 2024-10-29 | Outpatient (CLI) | payer OTHER, SELFPAY ==
[2024-10-29 08:25] LABS: Basophils % (Auto) 1 % (0-2.5); Eosinophils # (Auto) 0.2 Thou/mm3 (0.0-0.5); Eosinophils % (Auto) 5 % (0-10); Hematocrit 35.4 % (41.0-53.0); Hemoglobin 11.7 g/dL (13.5-16.0); Immature Granulocytes % (Auto) 0 % (0-0); Immature Granulocytes Auto 0.01 Thou/mm3 (0.00-0.00); Lymphocytes # (Auto) 1.4 Thou/mm3 (1.0-4.8); Lymphocytes % (Auto) 29 % (10-50); Mean Corpuscular HGB Conc 33.1 g/dl (31.0-37.0); Mean Corpuscular Hemoglobin 30.2 pg (25.0-35.0); Mean Corpuscular Volume 91 fL (80-100); Monocytes # (Auto) 0.6 Thou/mm3 (0.0-0.8); Monocytes % (Auto) 13 % (0-12); Neutrophils # (Auto) 2.4 Thou/mm3 (1.8-7.7); Neutrophils % (Auto) 51 % (37-80); Nucleated Red Blood Cell % 0 /100 WBC (0); Platelet Count 304 Thou/mm3 (140-440); RDW Standard Deviation 45.6 fL (35.1-43.9); Red Blood Count 3.88 Miln/mm3 (4.50-5.90); White Blood Count 4.8 Thou/mm3 (3.8-10.6)
[2024-10-29 08:26] LABS: Anion Gap 10 (7-16); BUN/Creatinine Ratio 16 Ratio (12-20); Blood Urea Nitrogen 19 mg/dL (9-23); Calcium 8.9 mg/dL (8.3-10.6); Carbon Dioxide 26.3 mMol/L (20.0-31.0); Cardiac Risk Estimate 3.6 RATIO (4.0-6.7); Chloride 103 mMol/L (98-107); Cholesterol 192 mg/dL (132-200); Creatinine (Component) 1.2 mg/dL (0.6-1.3); Glucose 92 mg/dL (74-106); HDL Cholesterol 53 mg/dL (40-60); LDL Cholesterol,Calculated 115 mg/dL (0-130); Osmolality,Calculated 279 (275-295); Potassium 4.1 mMol/L (3.4-5.1); Sodium 139 mMol/L (136-145); Triglycerides 118 mg/dL (30-150); eGFR > 60 See Note
[2024-10-29 08:39] LABS: Ferritin 32 ng/mL (10.5-307.3); Iron 121 mcg/dL (65-175); Total Iron Binding Capacity 262 mcg/dL (250-425)
== END | disposition home or self-care (01) ==
LOC: COPL 07:25
PROVIDERS: PCP Family Medicine; Referring Provider Family Medicine; Visit Provider Family Medicine
DX: Z13.220 Encounter for screening for lipoid disorders (principal); D64.9 Anemia, unspecified
CPT/HCPCS: 36415; 80048; 80061; 82728; 83540; 83550; 85025

== ENCOUNTER 2024-11-16 14:24 | Emergency (ER) | payer OTHER, SELFPAY ==
[2024-11-16 14:25] VITALS: BMI 22.9
[2024-11-16 14:44] VITALS: BP 159/82; PULSE 76; RESP 18; TEMP 36.8; O2SAT 97; BMI 22.9
--- NOTE | 2024-11-16 15:14 | XR_ITS ---
Examination: Ribs, right, with PA chest, 5 views Technique: Chest PA, RIBS AP, RPO, LPO, AP coned lower ribs 5 views Exam date and time: November 16, 2024 1629 hours Indications coronary through the right chest injury, right rib pain Findings: No pneumothorax Acute fracture right 10th rib in the midaxillary line without significant displacement No hemothorax or pulmonary contusion IMPRESSION: No pneumothorax pulmonary contusion or hemothorax Acute nondisplaced fracture right 10th rib
--- NOTE | 2024-11-16 15:14 | XR_ITS ---
Examination: Thoracic spine 3 views TECHNIQUE: AP lateral and cone lateral upper thoracic spine 3 views Date and time: November 16, 2024 1429 hours INDICATIONS: Injury to the upper back today, upper back pain. FINDINGS: No acute thoracic fracture Mild chronic-appearing osteoporotic compressions upper dorsal vertebral bodies but clinical correlation advised Mild diffuse thoracic disc narrowing. Impression: Mild chronic appearing osteoporotic compressions upper dorsal vertebral bodies but clinical correlation advised If significant back pain persists, consider CT scan thoracic spine without contrast follow-up
--- NOTE | 2024-11-16 16:09 | PD.EDFALL ---
ED Fall Injury RME/HPI General Chief Complaint: Fall Stated Complaint: R RIB PAIN S/P FALL Time Seen by Provider: 11/16/24 15:03 Arrival date/time: 11/16/24 14:24 This is a 68-year-old male that comes in with complaints of right rib pain. Patient states that he was working around the pool and hit himself on the edge of the pool on the right side. Patient complaining of right sided rib pain and right sided mid back pain. history of hyperlipidemia Related Data Home Medications ?Medication ?Instructions ?Recorded ?Confirmed omeprazole 40 mg capsule,delayed 40 mg PO QPM 10/07/17 09/11/24 release simvastatin 20 mg tablet 20 mg PO QPM 10/07/17 09/11/24 docusate sodium 100 mg capsule 100 mg PO QDAY 09/11/24 09/11/24 ferrous sulfate 325 mg (65 mg 325 mg PO QDAY 09/11/24 09/11/24 iron) tablet Allergies Allergy/AdvReac Type Severity Reaction Status Date / Time No Known Allergies Allergy Verified 11/16/24 14:28 Course Orders Category Date Time Status XR ribs RT min 3V w CXR1V Stat Exams 11/16/24 15:14 Completed XR thoracic spine 2V Stat Exams 11/16/24 15:14 Completed Vital Signs Vital signs: Vital Signs Temperature 98.3 F 11/16/24 14:44 Pulse Rate 76 11/16/24 14:44 Respiratory Rate 18 11/16/24 14:44 Blood Pressure 159/82 H 11/16/24 14:44 Pulse Oximetry (%) 97 11/16/24 14:44 Oxygen Delivery Method Room Air 11/16/24 14:44 Fall MDM Narrative MDM Narrative:: rib: Findings: No pneumothorax Acute fracture right 10th rib in the midaxillary line without significant displacement No hemothorax or pulmonary contusion IMPRESSION: No pneumothorax pulmonary contusion or hemothorax Acute nondisplaced fracture right 10th rib thoracic spine: FINDINGS: No acute thoracic fracture Mild chronic-appearing osteoporotic compressions upper dorsal vertebral bodies but clinical correlation advised Mild diffuse thoracic disc narrowing. Impression: Mild chronic appearing osteoporotic compressions upper dorsal vertebral bodies but clinical correlation advised If significant back pain persists, consider CT scan thoracic spine without contrast follow-up Discharge Plan Plan Patient Disposition: HOME (Self Care) Patient condition on transfer: Stable Prescriptions/Referrals Prescriptions/Med Rec: No Action omeprazole 40 mg Capsule,Delayed Release(Dr/Ec) 40 mg PO QPM simvastatin 20 mg Tablet 20 mg PO QPM ferrous sulfate 325 mg (65 mg iron) tablet 325 mg PO QDAY Patient Comments: TAKE 1 TABLET (325 MG) BY MOUTH EVERY OTHER DAY docusate sodium 100 mg capsule 100 mg PO QDAY Patient Comments: TAKE 1 CAPSULE BY MOUTH TWICE A DAY Referrals: Bernadette Sierra MD [Primary Care Provider] - In 1 week Problem List Clinical Impression: Fracture of right tenth rib, Fall Patient/Caregiver Discharge Instructions Discharge Activity: activity as tolerated Education Materials: ED Rib Fracture Additional Instructions: follow up with primary provider in 1-2 days. Come back to ED if symptoms change or worsen Print Language: Bhutanese Stand Alone Forms: Tarah Award Info., Patient Portal Info Letter PA/WATER RESOURCE MANAGER Supervising Physician PA/WATER RESOURCE MANAGER Supervising Physician: tania
== END 2024-11-16 17:12 | disposition home or self-care (01) ==
PROVIDERS: Emergency Provider Emergency Medicine; PCP Family Medicine
DX: S22.31XA Fracture of one rib, right side, initial encounter for closed fracture (principal); M81.0 Age-related osteoporosis without current pathological fracture; W19.XXXA Unspecified fall, initial encounter; Y93.H9 Activity, other involving exterior property and land maintenance, building and construction; Y92.095 Swimming-pool of other non-institutional residence as the place of occurrence of the external cause
CPT/HCPCS: 71101; 72070; 72072; 99283

== ENCOUNTER → 2024-12-01 | Outpatient (CLI) | payer OTHER, SELFPAY ==
[2024-12-01 08:59] LABS: Prostate Specific Antigen < 0.10 ng/mL (0-4.00)
== END | disposition home or self-care (01) ==
PROVIDERS: PCP Family Medicine; Referring Provider Urology; Visit Provider Urology
DX: Z01.89 Encounter for other specified special examinations (principal)
CPT/HCPCS: 36415; 84153

== ENCOUNTER → 2024-12-05 | Outpatient (BNVA) | payer OTHER, SELFPAY | END | disposition home or self-care (01) | PROVIDERS: PCP Family Medicine; Referring Provider Family Medicine; Visit Provider Urology | DX: C61 Malignant neoplasm of prostate (principal); Z90.79 Acquired absence of other genital organ(s); I10 Essential (primary) hypertension; N52.9 Male erectile dysfunction, unspecified; E78.00 Pure hypercholesterolemia, unspecified; K21.9 Gastro-esophageal reflux disease without esophagitis | CPT/HCPCS: 81003; 99212; G0463 ==

== ENCOUNTER → 2025-02-03 | Outpatient (CLI) | payer OTHER, SELFPAY ==
--- NOTE | 2025-02-03 14:45 | XR_ITS ---
Examination: Bone densitometry Date and time of exam:February 04, 2020 1457 hours INDICATIONS: Prostate carcinoma diagnosis with right rib fracture 2 months ago, diagnosis age related osteoporosis Technique: Lumbar spine and hip total bone mineralization values of an calculated. Peak reference and age match control results have been displayed. Findings: Lumbar spine total bone mineralization is0.753 gm/cm2. This is 3.1 standard deviations below peak reference. This is 2.3 standard deviations below age-matched controls. Hip total bone mineralization is 1.000 gm/cm2 This is 0.4 standard deviations below peak reference. This is 0.2 standard deviations above age-matched controls Impression: There is osteoporosis based on lumbar spine measurements. There is osteopenia based on hip measurements Lumbar mineralization is decreased 3.8% compared with December 28, 2016 Hip mineralization is increased 0.8% compared with December 28, 2016
== END | disposition home or self-care (01) ==
PROVIDERS: Referring Provider Family Medicine; Visit Provider Family Medicine
DX: M81.0 Age-related osteoporosis without current pathological fracture (principal); M85.89 Other specified disorders of bone density and structure, multiple sites
CPT/HCPCS: 77080

== ENCOUNTER → 2025-04-06 | Outpatient (CLI) | payer OTHER, SELFPAY ==
[2025-04-06 08:47] LABS: Prostate Specific Antigen < 0.10 ng/mL (0-4.00)
== END | disposition home or self-care (01) ==
PROVIDERS: PCP Family Medicine; Referring Provider Urology; Visit Provider Urology
DX: C61 Malignant neoplasm of prostate (principal)
CPT/HCPCS: 36415; 84153

== ENCOUNTER → 2025-04-06 | Outpatient (BNVA) | payer OTHER, SELFPAY | END | disposition home or self-care (01) | PROVIDERS: PCP Family Medicine; Referring Provider Family Medicine; Visit Provider Physician Assistant | DX: C61 Malignant neoplasm of prostate (principal); N39.3 Stress incontinence (female) (male); N52.9 Male erectile dysfunction, unspecified; I10 Essential (primary) hypertension | CPT/HCPCS: 99212; Q3014; G0463 ==

== ENCOUNTER → 2025-04-29 | Outpatient (CLI) | payer OTHER, SELFPAY ==
[2025-04-29 08:45] LABS: Basophils # (Auto) 0.0 Thou/mm3 (0.0-0.2); Basophils % (Auto) 1 % (0-2.5); Eosinophils # (Auto) 0.2 Thou/mm3 (0.0-0.5); Eosinophils % (Auto) 4 % (0-10); Hematocrit 37.3 % (41.0-53.0); Hemoglobin 12.1 g/dL (13.5-16.0); Immature Granulocytes Auto 0.02 Thou/mm3 (0.00-0.00); Lymphocytes # (Auto) 1.6 Thou/mm3 (1.0-4.8); Lymphocytes % (Auto) 33 % (10-50); Mean Corpuscular HGB Conc 32.4 g/dl (31.0-37.0); Mean Corpuscular Hemoglobin 30.1 pg (25.0-35.0); Mean Corpuscular Volume 93 fL (80-100); Monocytes # (Auto) 0.7 Thou/mm3 (0.0-0.8); Monocytes % (Auto) 15 % (0-12); Neutrophils # (Auto) 2.3 Thou/mm3 (1.8-7.7); Neutrophils % (Auto) 48 % (37-80); Nucleated Red Blood Cell # 0.00 Thou/mm3 (0.00-0.00); Nucleated Red Blood Cell % 0 /100 WBC (0); Platelet Count 330 Thou/mm3 (140-440); RDW Standard Deviation 45.0 fL (35.1-43.9); Red Blood Count 4.02 Miln/mm3 (4.50-5.90); White Blood Count 4.9 Thou/mm3 (3.8-10.6)
[2025-04-29 09:08] LABS: Alanine Aminotransferase 13 U/L (10-49); Albumin, Serum 4.7 gm/dL (3.4-4.8); Albumin/Globulin Ratio 2.0 (1.2-2.2); Alkaline Phosphatase 69 U/L (46-116); Anion Gap 9 (7-16); Aspartate Amino Transferase 23 U/L (0-34); BUN/Creatinine Ratio 12 Ratio (12-20); Bilirubin,Total 0.5 mg/dL (0.3-1.2); Blood Urea Nitrogen 18 mg/dL (9-23); Calcium 9.6 mg/dL (8.3-10.6); Calcium (Corrected) 9.6 mg/dL (8.5-10.1); Carbon Dioxide 27.4 mMol/L (20.0-31.0); Cardiac Risk Estimate 3.4 RATIO (4.0-6.7); Chloride 108 mMol/L (98-107); Cholesterol 191 mg/dL (132-200); Creatinine (Component) 1.5 mg/dL (0.6-1.3); Globulin 2.4 gm/dL (2.3-3.5); Glucose 100 mg/dL (74-106); HDL Cholesterol 57 mg/dL (40-60); LDL Cholesterol,Calculated 117 mg/dL (0-130); Osmolality,Calculated 288 (275-295); Potassium 4.3 mMol/L (3.4-5.1); Sodium 144 mMol/L (136-145); Total Protein 7.1 gm/dL (5.7-8.2); Triglycerides 83 mg/dL (30-150); eGFR 51 See Note
== END | disposition home or self-care (01) ==
LOC: COPL 07:17
PROVIDERS: PCP Family Medicine; Referring Provider Family Medicine; Visit Provider Family Medicine
DX: E78.2 Mixed hyperlipidemia (principal); I10 Essential (primary) hypertension; D64.9 Anemia, unspecified
CPT/HCPCS: 36415; 80053; 80061; 85025

== ENCOUNTER → 2025-05-13 | Outpatient (CLI) | payer OTHER, SELFPAY ==
--- NOTE | 2025-05-13 11:49 | XR_ITS ---
EXAMINATION: Lumbar spine 4 views TECHNIQUE: AP, lateral, standing lateral extension, standing lateral flexion 4 views Date and time: May 13, 2025, 11:53 a.m. INDICATIONS: Injury to lower back 6 months ago with persistent pain. FINDINGS: No acute lumbar fracture Grade 2 anterolisthesis L5 on S1 16 mm in flexion, 10 mm in extension Advanced degenerative disc disease L5-S1 Marked reduced range of motion between flexion and extension IMPRESSION: Grade 2 anterolisthesis L5 on S1 Advanced degenerative disc disease L5-S1
--- NOTE | 2025-05-13 11:50 | XR_ITS ---
EXAMINATION: Thoracic spine 3 views TECHNIQUE: AP lateral coned lateral upper dorsal spine 3 views Date and time: May 13, 2025, 1157 hours INDICATIONS: Injury to the upper back 6 months ago, upper back pain. FINDINGS: Significant osteopenia Upper thoracic levoscoliosis 8 degrees No thoracic fracture Mild diffuse thoracic disc narrowing IMPRESSION: No acute thoracic fracture Mild diffuse thoracic disc narrowing
--- NOTE | 2025-05-13 16:00 | XR_ITS ---
Examination: Retroperitoneal ultrasound, complete Technique: Multiple high resolution grayscale images of the retroperitoneum obtained, including kidneys and bladder. Exam date and time: May 13, 2025, 1206 hours INDICATIONS: Right flank pain beginning 4 months ago FINDINGS: Right kidney 9.5 cm renal cortex 1.0 cm Prominent right hydronephrosis Left kidney 11.7 cm renal cortex 1.3 cm 15 mm upper pole cyst Moderate renal scar formation No bladder mass or bladder calculi, bladder prevoid volume 301 cc Negative for prostatomegaly negative for prostate nodule IMPRESSION: Prominent right hydronephrosis, recommend repeat CT scan abdomen pelvis without contrast follow-up
== END | disposition home or self-care (01) ==
PROVIDERS: PCP Family Medicine; Referring Provider Family Medicine; Visit Provider Family Medicine
DX: N13.30 Unspecified hydronephrosis (principal); M51.370 Other intervertebral disc degeneration, lumbosacral region with discogenic back pain only; M48.04 Spinal stenosis, thoracic region; N18.31 Chronic kidney disease, stage 3a
CPT/HCPCS: 72070; 72110; 76770

== ENCOUNTER → 2025-05-27 | Outpatient (CLI) | payer OTHER, SELFPAY ==
[2025-05-27 08:10] LABS: Collection Type, Urine Clean Catch; Squamous Epithelial Cell,Urine 0 /hpf (0-5)
[2025-05-27 08:37] LABS: Bilirubin,Urine Negative (Negative); Blood,Urine 1+ (Negative); Clarity,Urine Clear (Clear/Hazy); Color,Urine Lt-Yellow (Lt Yel-Yel); Glucose, Urine Negative (Negative); Ketones,Urine Negative (Negative); Leukocyte Esterase,Urine Negative (Negative); Nitrite,Urine Negative (Negative); PH,Urine 6.0 (5.0-7.0); Protein,Urine Negative (Neg - Trace); RBC,Urine 5 /hpf (0-3); Specific Gravity,Urine 1.017 (1.001-1.035); Urobilinogen,Urine Negative mg/dL (0.0-1.0); WBC,Urine < 1 /hpf (0-5)
[2025-05-27 10:49] LABS: Anion Gap 8 (7-16); BUN/Creatinine Ratio 15 Ratio (12-20); Blood Urea Nitrogen 20 mg/dL (9-23); Calcium 9.4 mg/dL (8.3-10.6); Carbon Dioxide 27.0 mMol/L (20.0-31.0); Chloride 103 mMol/L (98-107); Creatinine (Component) 1.3 mg/dL (0.6-1.3); Glucose 86 mg/dL (74-106); Osmolality,Calculated 277 (275-295); Potassium 4.2 mMol/L (3.4-5.1); Sodium 138 mMol/L (136-145); eGFR > 60 See Note
== END | disposition home or self-care (01) ==
LOC: COPL 07:13
PROVIDERS: PCP Family Medicine; Referring Provider Family Medicine; Visit Provider Family Medicine
DX: N18.31 Chronic kidney disease, stage 3a (principal)
CPT/HCPCS: 36415; 80048; 81001